=== PATIENT | female | born 1990 | race African-American/Black ===

== ENCOUNTER 2017-04-02 04:50 | Inpatient (IN) | payer OTHER ==
[2017-04-02] MEDS ORDERED: CITRIC ACID/SODIUM CITRATE 30 ML UNIT-DOSE CUP PO ONE (06:12)
[2017-04-02] MEDS ORDERED: ELECTROLYTE-148 SOLN 500 ML IV ONE (06:12)
[2017-04-02] MEDS ORDERED: ELECTROLYTE-148 SOLN 1,000 ML IV SCH (06:15)
--- NOTE | 2017-04-02 06:17 | HP ---
Past Medical History - Primary Care Physician PCP:: Anai Dailey - Admission Chief Complaint: 26 yrs , 36. 2 weeks, previous c/section in labor . onse LP at 3.30 am History of Present Illness: PNC at [facility] . Wt gain 17 lbs PNWork UP : A POS, HBSAg neg, RPR nr, HIV neg, Quantiferon neg, Quad screen neg. MFM sono done , last report on 01/29/17 28.5 /7 weeks, 66%tile growth(1409 gm) , TRISH 12.06, cx3.01 cm PT started [place] [facility] q1 week since 21 weeks( 3 rd week of Nov) until 2 weeks ago ( 34 weeks ) . pt has been seen twice before in L&D for threatened PTL, last seen on 03/27/17 . History Source: Patient, Medical Record Limitations to Obtaining History: No Limitations - Past Medical History PHOTO INTERN: No: CVA, Migraine, Seizure Cardiovascular: No: Aortic Insufficiency, Murmur Pulmonary: No: Asthma Gastrointestinal: No: Gastritis, Hemorrhoids Hepatobiliary: Yes: Choledocholithiasis (operated in 2010) Renal/: No: UTI ...: 2 ...Para: 1 ...Term: 0 ...: 1 (04/01/2010 primary c/section 27 weeks 2'8") ...Spon : 0 ...LMP: 09/01/16 ...EDC by Dates: 06/25/17 (mistaken dates ) ...EDC by Sono: 04/28/17 (36.2 weeks ) Heme/Onc: Yes: Anemia Infectious Disease: No: HIV, STD's Endocrine: No: Diabetes Mellitus, Hypothyroidism - Past Surgical History Past Surgical History: Yes: Cholecystectomy ([address] [facility] hosp), ( prom at [facility]) Hx Myomectomy: No Hx Transabdominal Cerclage: No - Smoking History Smoking history: Never smoked - Alcohol/Substance Use History of Substance Use: reports: None Home Medications - Allergies Allergies/Adverse Reactions: Allergies Allergy/AdvReac Type Severity Reaction Status Date / Time morphine Allergy Intermediate Verified 03/28/17 02:23 oxycodone Allergy Mild Verified 03/28/17 02:23 - Home Medications Home Medications: Ambulatory Orders NK [No Known Home Medication] 04/02/17 Physical Exam - Maternity Vital Signs: Selected Entries 04/02/17 04/02/17 06:00 06:20 Temperature 98 F 98 F Pulse Rate 94 H 100 H Blood Pressure 120/67 120/67 Constitutional: Yes: Well Nourished, Severe Distress Eyes: Yes: WNL HENT: Yes: WNL Neck: Yes: WNL Cardiovascular: Yes: WNL Lungs: Clear to auscultation Breast(s): Yes: WNL - Abdominal Exam/OB Fundal Height: 36 Number of Fetuses: Single Presentation: Vertex Contractions: Yes Regularity: Regular (4-5 min) Intensity: Mod/Strong Monitor Mode: External Heart Rate (range): 130-140 Heart Rate Location: [facility] Category: I Accelerations: Uniform Decelerations: None - Vaginal Exam/OB Vaginal Bleediing: No Speculum Exam: No Dilatation (cm): 1-2 Effacement (%): 70 Amniotic Membrane Status: Intact Presentation: Vertex/Position (exam at 6.00aM) Station: -1 - Physical Exam Musculoskeletal: Yes: WNL Extremities: Yes: WNL. No: Calf Tenderness Edema: No Integumentary: Yes: WNL, Incision (old pfannensteil scar) Deep Tendon Reflex Grade: Normal +2 ...Motor Strength: WNL Psychiatric: Yes: WNL, Alert, Oriented - Labs Lab Results: Laboratory Tests 04/02/17 04/02/17 06:15 06:15 WBC 6.9 Hgb 10.4 L Hct 31.5 L Plt Count 224 Neutrophils % 59.9 Lymphocytes % 31.1 Monocytes % 7.3 Sodium 137 Potassium 3.9 Chloride 105 Carbon Dioxide 21 BUN 5 L Creatinine 0.5 L Random Glucose 85 Calcium 8.6 Problem List - Problems (1) 36 to 37 weeks gestation of Code(s): [id number] - (2) Labor established Code(s): YTB8810 - (3) Previous section Code(s): Z98.891 - HISTORY OF UTERINE SCAR FROM PREVIOUS SURGERY Assessment/Plan 26 yrs , 36.2 weeks, s/p [place] [facility] until 2 weeks ago in PTlabor, refuses tocolysis 6.15 am late decel is noted down to 70 bpm for 3min , decel recovered after changing the position Plan delivery by Repeat c/section
[2017-04-02 06:38] VITALS: BMI 32.5
[2017-04-02 06:44] LABS: BASOPHIL 0.4 % (0-2.0); EOSINOPHIL 1.3 % (0-4.5); MCH 26.5 pg (25.7-33.7); MCHC 33.1 g/dl (32.0-36.0); MEAN CELL VOLUME 80.3 fl (80-96); MEAN PLT VOLUME 8.4 fl (7.5-11.1); NEUTROPHILS 59.9 % (42.8-82.8); PLATELET COUNT 224 K/MM3 (134-434); RDW 13.3 % (11.6-15.6); WHITE BLOOD COUNT 6.9 K/mm3 (4.0-10.0)
[2017-04-02 07:06] LABS: CALCIUM 8.6 mg/dL (8.5-10.1); COCKROFT - GAULT 203.83; CREATININE 0.5 mg/dL (0.55-1.02)
[2017-04-02 08:04] LABS: HIV 1 & 2 AB NEGATIVE; HIV 1 AGp24 NEGATIVE
[2017-04-02 08:56] LABS: INR 1.04 (0.82-1.09); PROTHROMBIN TIME (PATIENT) 11.4 SEC (9.98-11.88)
[2017-04-02 08:58] LABS: ACTIVATED PTT 24.4 SECONDS (26.9-34.4)
[2017-04-02] MEDS ORDERED: IBUPROFEN 800 MG/8 ML IJ IVPB PRN (09:54)
[2017-04-02] MEDS ORDERED: METHYLERGONOVINE MALEATE 0.2 MG/1 ML AMP IM PRN (09:54)
[2017-04-02] MEDS ORDERED: ACETAMINOPHEN 325 MG TABLET (FP) PO PRN (09:58)
[2017-04-02] MEDS ORDERED: IBUPROFEN 600 MG TABLET (FP) PO PRN (09:58)
[2017-04-02] MEDS ORDERED: ONDANSETRON 4 MG/2 ML VIAL IVPB PRN (09:58)
[2017-04-02] MEDS ORDERED: D5W-LR W/ 20 UNITS OXYTOCIN 1,000 ML IV SCH (10:00)
--- NOTE | 2017-04-02 10:02 | PN ---
Delivery - Delivery Section: Repeat, Low Flap Transverse (36.2 weeks, previous c/section in located within [facility]) Type of Anesthesia: Spinal Episiotomy/Laceration: None EBL (cc): 500 (floey out put 150 ml eileen color ) Delivery, Single - Stages of Labor Date 1st Stage Initiatied: 04/02/17 Time 1st Stage Initiated: 03:30 Date of Delivery: 04/02/17 Time of Delivery: 09:01 Time Placenta Delivered: 09:02 Placenta: Yes: Manual Removal, Uterine Exploration - Condition of Infant Self Pay Specialist/Towel Sorter Present: Yes Name: Mckinley Taylor Infant Gender: Female Weight: 5 lb 10 oz Position: Right, OT Total Hours ROM (Hrs/Mins): 0hrs 2min - 1 Minute Total Score: 9 5 Minutes Total Score: 9 - Feeding Plan Initial Plan: Elected not to breastfeed exclusively throughout hospitalization Remarks - Remarks Remarks: 26 yrs 36.2 weeks, previous c/section admitted in labor. h/o previous PTL, rx timmy until 34 weeks gestation Gbs unknown PNC at [facility] Intaop course uneventful
--- NOTE | 2017-04-02 10:11 | OP ---
Operative Note - Note: Operative Date: 04/02/17 Pre-Operative Diagnosis: 36.2 weeks, previous c/section in labor Operation: Repeat LFTC/Section Findings: 9.01 am , baby girl, 9/9, wt 5'10", ROT Dr Taylor logging crew foreman present in the room Both tubes & ovaries normal Surgeon: Anai Dailey Imaging Technician: Vanessa Simon Anesthesiologist/MACHINE TURNER: Rachel Cortes Anesthesia: Spinal Specimens Removed: placenta. cord blood Estimated Blood Loss (mls): 500 Drains, Volume Out (mls): 150 (quiros out put eileen color ) Fluid Volume Replaced (mls): 1,200 (iv ancef preop was given ) Operative Report Dictated: Yes
[2017-04-02] MEDS ORDERED: CEFAZOLIN (PRE-DOCKED) 50 ML IVPB ONE (17:10)
[2017-04-02] MEDS: CEFAZOLIN (PRE-DOCKED) 50 ML IVPB SCH (17:12)
[2017-04-03] MEDS: CEFAZOLIN (PRE-DOCKED) 50 ML IVPB SCH ×2 (01:10→09:37)
[2017-04-03] MEDS: ACETAMINOPHEN 325 MG TABLET (FP) PO PRN ×3 (06:49→21:10)
[2017-04-03] MEDS: IBUPROFEN 600 MG TABLET (FP) PO PRN ×3 (06:49→21:08)
[2017-04-03 07:32] LABS: BASOPHIL 0.4 % (0-2.0); EOSINOPHIL 2.2 % (0-4.5); MCH 26.5 pg (25.7-33.7); MCHC 32.8 g/dl (32.0-36.0); MEAN CELL VOLUME 80.9 fl (80-96); MEAN PLT VOLUME 8.4 fl (7.5-11.1); NEUTROPHILS 68.5 % (42.8-82.8); PLATELET COUNT 208 K/MM3 (134-434); RDW 13.4 % (11.6-15.6); WHITE BLOOD COUNT 9.6 K/mm3 (4.0-10.0)
--- NOTE | 2017-04-03 08:07 | PN ---
Post Progress Note - Subjective Subjective: c/o itching c/o pain. only after she voided first time voided after quiros is taken out Type of Delivery: Primary C/S Vital Signs: Vital Signs Temperature 98.2 F 04/03/17 06:00 Pulse Rate 88 04/03/17 06:00 Respiratory Rate 20 04/03/17 06:00 Blood Pressure 106/56 04/03/17 06:00 O2 Sat by Pulse Oximetry (%) 100 04/02/17 10:35 Breast Exam: Yes: Soft. No: Engorged Uterus: Yes: Fundus Firm, Fundus below umbilicus Incision: Yes: Dressing dry and intact. No: Redness, Oozing Abdomen/GI: Yes: Abdomen soft (bs cative ), Tolerating PO (clear liqiuds ). No : Abdominal Distention, Tender, Passing flatus Lochia: Yes: Rubra Lochia, amount: Moderate Extremities: Yes: Calves non-tender Perineum: Yes: Intact Activity: Ambulating - Labs Labs: CBC WBC 9.6 K/mm3 (4.0-10.0) D 04/03/17 06:00 RBC 4.09 M/mm3 (3.60-5.2) 04/03/17 06:00 Hgb 10.9 GM/dL (10.7-15.3) 04/03/17 06:00 Hct 33.1 % (32.4-45.2) 04/03/17 06:00 MCV 80.9 fl (80-96) 04/03/17 06:00 MCHC 32.8 g/dl (32.0-36.0) 04/03/17 06:00 RDW 13.4 % (11.6-15.6) 04/03/17 06:00 Plt Count 208 K/MM3 (134-434) 04/03/17 06:00 MPV 8.4 fl (7.5-11.1) 04/03/17 06:00 Neutrophils % 68.5 % (42.8-82.8) 04/03/17 06:00 Lymphocytes % 19.7 % (8-40) D 04/03/17 06:00 Monocytes % 9.2 % (3.8-10.2) 04/03/17 06:00 Eosinophils % 2.2 % (0-4.5) 04/03/17 06:00 Basophils % 0.4 % (0-2.0) 04/03/17 06:00 Other Findings, Remarks: JAYASHREE quiros out put adequate Problem List - Problems (1) 36 to 37 weeks gestation of Code(s): [id number] - (2) Labor established Code(s): [id number] - (3) Previous section Code(s): Z98.891 - HISTORY OF UTERINE SCAR FROM PREVIOUS SURGERY (4) delivery delivered Code(s): O82 - ENCOUNTER FOR DELIVERY WITHOUT INDICATION Assessment/Plan stable. plan ct po care
[2017-04-03] MEDS: PRENATAL VITAMINS W/ FOLIC ACID TABLET (FP) PO SCH (09:37)
[2017-04-03] MEDS: ENOXAPARIN NA (PORCINE) 40 MG/0.4 ML DISP.SYRIN SQ SCH (09:38)
[2017-04-03] MEDS ORDERED: BISACODYL 10 MG SUPP.RECT RC PRN (09:54)
--- NOTE | 2017-04-03 12:07 | OP ---
DATE OF OPERATION: 04/02/2017 PREOPERATIVE DIAGNOSES: At 36.2 weeks, previous section, in labor. OPERATION DONE: Repeat low-flap transverse section. SURGEON: Anai Dailey MD PRODUCTION MATERIAL COORDINATOR SURGEON: Vanessa Simon MD ANESTHESIOLOGIST: Rachel Cortes MD ANESTHESIA: Spinal. FINDINGS: This is a 26-year-old 2, para 0-1-0-1 with a history of labor, previous in the past at 27 weeks' gestation. Now, she is 36.2 weeks. She was in labor, having contractions every 4 or 5 minutes, 1 cm, 70%, dilated at -1 station, so the patient was taken for a . PROCEDURE: Patient was taken to the operating room table. Abdomen was shaved, prepped. Mora catheter was placed and spinal anesthesia was given. She was placed in supine position. Abdomen was painted and draped in the usual manner, then a Pfannenstiel incision was made through previous scar. The skin, subcutaneous tissue, anterior rectus sheath were incised transversely. Bleeding points were clamped and cauterized. Rectus muscle was from the rectus sheath. Parietal peritoneum was opened vertically. Lower flap of the peritoneum was identified and it was incised transversely. Lower uterine segment was incised transversely. Amniotic fluid was clear, then the baby was delivered from ROT position , Vx, was 9, 9 and baby's weight was 5 pounds 10 ounces. Cord was clamped, cut, cord blood was collected and the placenta was removed from completely with the membranes. Personal Lines Appraiser, Dr. Taylor, was in the room. First, the uterine incision closure was done. First layer of the uterus incision was closed with Boisyn O suture; continuous locking sutures were taken. The 2nd layer was a Biosyn 0 suture; continuous intermittently locking vertical mattress sutures were taken. Then, bladder peritoneum also was closed with biosyn oO continuous suture. Both tubes and ovaries were normal. There were multiple adhesions on the adnexa on both sides and omental adhesions anteriorly covering the superior peritoneum. There was adhesion of omentum with a thick band to the uterus on the right side, which was clamped, cut and the stump on the uterus side was transfixed with Biosyn O suture. Hemostasis verified and then irrigation was done. Then, the adhesions superiorly to the peritoneum were covering completely, so lysis was not done there, but the right and left side of the peritoneum were made free of the omental adhesions, then the parietal peritoneum was closed with a Vicryl suture. Muscles were approximated together with a Vicryl 0 suture; interrupted sutures were taken. Then, the anterior rectus sheath was mobilized from the skin scar and it was freed. The anterior rectus sheath was closed with Vicryl 0 continuous sutures and hemostasis was checked in subcutaneous tissue; interrupted sutures were taken with vicryl O suture in subcutaneous tissue, then skin was approximated with brenda. Pressure dressing was given. Blood clots were removed from the vagina and patient tolerated procedure well. She was transferred to the recovery room in stable condition. ESTIMATED BLOOD LOSS: Was 500 mL. URINE OUTPUT INTRAOPERATIVELY: Was 150 mL. She received IV Ancef 1 g prior to the incision. Albert [id number] MTDD
--- NOTE | 2017-04-03 14:04 | PN ---
Progress Note (short form) - Note Progress Note: Anesthesia postop note 26 y/o F s/p spinal anesthesia for c/s, duramorph for postop pain management POD#1, vss, aaoX3, no complaints, pain well controlled, ambulating No anesthesia complications.
[2017-04-03] MEDS: SIMETHICONE 80 MG TAB.CHEW (FP) PO PRN ×2 (17:51→21:11)
[2017-04-03] MEDS: SENNOSIDES/DOCUSATE COMBO (SENNA PLUS) TABLET (UD) PO PRN (21:10)
[2017-04-03] MEDS: FERROUS SO4 325 MG TABLET (FP) PO SCH (21:23)
[2017-04-04] MEDS: PRENATAL VITAMINS W/ FOLIC ACID TABLET (FP) PO SCH (10:12)
[2017-04-04] MEDS: FERROUS SO4 325 MG TABLET (FP) PO SCH ×2 (10:12→21:24)
[2017-04-04] MEDS: ENOXAPARIN NA (PORCINE) 40 MG/0.4 ML DISP.SYRIN SQ SCH (10:13)
[2017-04-04] MEDS: ACETAMINOPHEN 325 MG TABLET (FP) PO PRN (13:00)
[2017-04-04] MEDS: SIMETHICONE 80 MG TAB.CHEW (FP) PO PRN (13:00)
[2017-04-04] MEDS: IBUPROFEN 600 MG TABLET (FP) PO PRN (13:01)
--- NOTE | 2017-04-04 18:05 | PN ---
Post Progress Note - Subjective Subjective: no c/o pain , scale 4-5/10 voiding without difficulty Post Day: 2 Type of Delivery: Repeat C/S Vital Signs: Vital Signs Temperature 97.7 F 04/04/17 09:42 Pulse Rate 76 04/04/17 09:42 Respiratory Rate 18 04/04/17 09:42 Blood Pressure 128/72 04/04/17 09:42 O2 Sat by Pulse Oximetry (%) 100 04/02/17 10:35 Breast Exam: Yes: Soft, Other (BF ). No: Engorged Uterus: Yes: Fundus Firm, Fundus below umbilicus, Non-tender Incision: Yes: Ba intact. No: Redness, Oozing Abdomen/GI: Yes: Abdomen soft, Tender, Passing flatus (bm done ), Tolerating PO (diet). No: Abdominal Distention Lochia: Yes: Rubra Lochia, amount: Moderate Extremities: Yes: Calves non-tender Perineum: Yes: Intact Activity: Ambulating - Labs Labs: CBC WBC 9.6 K/mm3 (4.0-10.0) D 04/03/17 06:00 RBC 4.09 M/mm3 (3.60-5.2) 04/03/17 06:00 Hgb 10.9 GM/dL (10.7-15.3) 04/03/17 06:00 Hct 33.1 % (32.4-45.2) 04/03/17 06:00 MCV 80.9 fl (80-96) 04/03/17 06:00 MCHC 32.8 g/dl (32.0-36.0) 04/03/17 06:00 RDW 13.4 % (11.6-15.6) 04/03/17 06:00 Plt Count 208 K/MM3 (134-434) 04/03/17 06:00 MPV 8.4 fl (7.5-11.1) 04/03/17 06:00 Neutrophils % 68.5 % (42.8-82.8) 04/03/17 06:00 Lymphocytes % 19.7 % (8-40) D 04/03/17 06:00 Monocytes % 9.2 % (3.8-10.2) 04/03/17 06:00 Eosinophils % 2.2 % (0-4.5) 04/03/17 06:00 Basophils % 0.4 % (0-2.0) 04/03/17 06:00 Problem List - Problems (1) 36 to 37 weeks gestation of Code(s): [id number] - (2) Labor established Code(s): [id number] - (3) Previous section Code(s): Z98.891 - HISTORY OF UTERINE SCAR FROM PREVIOUS SURGERY (4) delivery delivered Code(s): O82 - ENCOUNTER FOR DELIVERY WITHOUT INDICATION Assessment/Plan stable plan ct po care
[2017-04-04] MEDS: SENNOSIDES/DOCUSATE COMBO (SENNA PLUS) TABLET (UD) PO PRN (21:24)
[2017-04-05] MEDS: IBUPROFEN 600 MG TABLET (FP) PO PRN (02:17)
[2017-04-05] MEDS: ACETAMINOPHEN 325 MG TABLET (FP) PO PRN (02:20)
[2017-04-05] MEDS: SIMETHICONE 80 MG TAB.CHEW (FP) PO PRN (02:20)
[2017-04-05 06:49] LABS: BASOPHIL 0.4 % (0-2.0); EOSINOPHIL 4.9 % (0-4.5); MCH 26.5 pg (25.7-33.7); MCHC 32.7 g/dl (32.0-36.0); MEAN CELL VOLUME 81.1 fl (80-96); MEAN PLT VOLUME 8.5 fl (7.5-11.1); NEUTROPHILS 56.3 % (42.8-82.8); PLATELET COUNT 215 K/MM3 (134-434); RDW 13.7 % (11.6-15.6)
[2017-04-05] MEDS: ENOXAPARIN NA (PORCINE) 40 MG/0.4 ML DISP.SYRIN SQ SCH (09:06)
[2017-04-05] MEDS: FERROUS SO4 325 MG TABLET (FP) PO SCH ×2 (09:06→21:53)
[2017-04-05] MEDS: PRENATAL VITAMINS W/ FOLIC ACID TABLET (FP) PO SCH (09:06)
--- NOTE | 2017-04-05 09:39 | PN ---
Post Progress Note - Subjective Subjective: no complains pain scale 0. Post Day: 3 Type of Delivery: Repeat C/S Vital Signs: Vital Signs Temperature 98.4 F 04/04/17 22:00 Pulse Rate 85 04/04/17 22:00 Respiratory Rate 18 04/04/17 22:00 Blood Pressure 116/68 04/04/17 22:00 O2 Sat by Pulse Oximetry (%) 100 04/02/17 10:35 Breast Exam: Yes: Soft. No: Engorged Uterus: Yes: Fundus Firm, Fundus below umbilicus, Non-tender Incision: Yes: [place] intact. No: Redness, Oozing Abdomen/GI: Yes: Abdomen soft, Passing flatus (bm done ), Tolerating PO (diet ) . No: Abdominal Distention, Tender Lochia: Yes: Rubra Lochia, amount: Moderate Extremities: Yes: Calves non-tender Perineum: Yes: Intact Activity: Ambulating - Labs Labs: CBC WBC 7.0 K/mm3 (4.0-10.0) 04/05/17 05:42 RBC 3.59 M/mm3 (3.60-5.2) L 04/05/17 05:42 Hgb 9.5 GM/dL (10.7-15.3) L D 04/05/17 05:42 Hct 29.1 % (32.4-45.2) L 04/05/17 05:42 MCV 81.1 fl (80-96) 04/05/17 05:42 MCHC 32.7 g/dl (32.0-36.0) 04/05/17 05:42 RDW 13.7 % (11.6-15.6) 04/05/17 05:42 Plt Count 215 K/MM3 (134-434) 04/05/17 05:42 MPV 8.5 fl (7.5-11.1) 04/05/17 05:42 Neutrophils % 56.3 % (42.8-82.8) 04/05/17 05:42 Lymphocytes % 31.2 % (8-40) D 04/05/17 05:42 Monocytes % 7.2 % (3.8-10.2) 04/05/17 05:42 Eosinophils % 4.9 % (0-4.5) H D 04/05/17 05:42 Basophils % 0.4 % (0-2.0) 04/05/17 05:42 Problem List - Problems (1) 36 to 37 weeks gestation of Code(s): [id number] - (2) Labor established Code(s): [id number] - (3) Previous section Code(s): Z98.891 - HISTORY OF UTERINE SCAR FROM PREVIOUS SURGERY (4) delivery delivered Code(s): O82 - ENCOUNTER FOR DELIVERY WITHOUT INDICATION Assessment/Plan stable plan discharge tomorrow. remove staoles tomorrow.
--- NOTE | 2017-04-05 15:14 | PATH ---
Surgical Pathology Report Patient Name: JUS ETIENNE Med. Rec. #: [id number] /Age/Gender: 1990 (Age: 26) / F Account: [id number] Location: [facility] OBS/HEALTHCARE ADVISORY SERVICES MANAGER Taken: 04/02/2017 Received: 04/03/2017 Reported: 04/05/2017 Physicians: Anai Dailey M.D. Specimen(s) Received PLACENTA Clinical History , c/section x1; gallbladder removed 01/28 Repeat c/section Final Diagnosis PLACENTA, DELIVERY: FOCALLY DISRUPTED, SMALL (<400 GM), THIRD TRIMESTER PLACENTA WITH MODERATE INCREASE IN PREVILLOUS, PERIVILLOUS, AND PRECHORIONIC FIBRIN DEPOSITION, THREE VESSEL UMBILICAL CORD, AND UNREMARKABLE PLACENTAL MEMBRANES. Electronically Signed Jaylon Lance M.D. Gross Description The specimen is received fresh, labeled "placenta" and is a 375 gram, 18.0 x 15.0 x 2.2 cm placenta with attached membranes and umbilical cord. The attached membranes are raymond, translucent with focal opacities and insert marginally. The umbilical cord measures 33 cm in length and averages 1.1 cm in diameter. The cord inserts eccentrically, 5 cm to the nearest margin. No true knots or strictures are identified. Cut surface of the umbilical cord reveals 3 vessels. The surface is bauer-blue with fibrin deposition and appropriate caliber vessels. The maternal surface is red-brown with focal defects. Sectioning reveals red-brown, spongy parenchyma. No focal lesions are identified. Account Development Specialist sections are submitted in three cassettes as follows: 1- membrane rolls and umbilical cord; 2-3- full thickness sections of placenta. /04/04/2017 [facility]04/04/2017
[2017-04-06] MEDS: SIMETHICONE 80 MG TAB.CHEW (FP) PO PRN (00:36)
[2017-04-06] MEDS: ACETAMINOPHEN 325 MG TABLET (FP) PO PRN (00:37)
[2017-04-06] MEDS: IBUPROFEN 600 MG TABLET (FP) PO PRN (00:38)
--- NOTE | 2017-04-06 06:37 | PN ---
Post Progress Note Post Day: 4 Type of Delivery: Repeat C/S Vital Signs: Vital Signs Temperature 98.0 F 04/05/17 21:54 Pulse Rate 110 H 04/05/17 21:54 Respiratory Rate 20 04/05/17 21:54 Blood Pressure 126/70 04/05/17 21:54 O2 Sat by Pulse Oximetry (%) 100 04/02/17 10:35 Uterus: Yes: Fundus Firm Incision: Yes: [place] intact Abdomen/GI: Yes: Abdomen soft Lochia: Yes: Rubra Lochia, amount: Small Extremities: Yes: Calves non-tender Perineum: Yes: Intact Activity: Ambulating - Labs Labs: CBC WBC 7.0 K/mm3 (4.0-10.0) 04/05/17 05:42 RBC 3.59 M/mm3 (3.60-5.2) L 04/05/17 05:42 Hgb 9.5 GM/dL (10.7-15.3) L D 04/05/17 05:42 Hct 29.1 % (32.4-45.2) L 04/05/17 05:42 MCV 81.1 fl (80-96) 04/05/17 05:42 MCHC 32.7 g/dl (32.0-36.0) 04/05/17 05:42 RDW 13.7 % (11.6-15.6) 04/05/17 05:42 Plt Count 215 K/MM3 (134-434) 04/05/17 05:42 MPV 8.5 fl (7.5-11.1) 04/05/17 05:42 Neutrophils % 56.3 % (42.8-82.8) 04/05/17 05:42 Lymphocytes % 31.2 % (8-40) D 04/05/17 05:42 Monocytes % 7.2 % (3.8-10.2) 04/05/17 05:42 Eosinophils % 4.9 % (0-4.5) H D 04/05/17 05:42 Basophils % 0.4 % (0-2.0) 04/05/17 05:42 Assessment/Plan as above dc home see on monday
[2017-04-06] MEDS: ENOXAPARIN NA (PORCINE) 40 MG/0.4 ML DISP.SYRIN SQ SCH (09:55)
[2017-04-06] MEDS: PRENATAL VITAMINS W/ FOLIC ACID TABLET (FP) PO SCH (09:55)
[2017-04-06] MEDS: FERROUS SO4 325 MG TABLET (FP) PO SCH (09:55)
[2017-04-06 10:29] VITALS: BP 113/71; PULSE 65; TEMP 98.3
--- NOTE | 2017-04-18 18:12 | DS ---
Physical Exam-LAW PROFESSOR Vital Signs: Vital Signs Temperature 98.3 F 04/06/17 10:00 Pulse Rate 65 04/06/17 10:00 Respiratory Rate 20 04/06/17 10:00 Blood Pressure 113/71 04/06/17 10:00 O2 Sat by Pulse Oximetry (%) 100 04/02/17 10:35 Constitutional: Yes: Well Nourished Eyes: Yes: WNL HENT: Yes: WNL, Normocephalic Neck: Yes: WNL Cardiovascular: Yes: WNL Respiratory: Yes: WNL Gastrointestinal: Yes: WNL, Normal Bowel Sounds, Soft. No: Distention ...Rectal Exam: Yes: WNL Renal/: Yes: WNL External Genitalia: Yes: Normal ....Post : Yes: Uterus firm, Moderate lochia rubra Breast(s): Yes: WNL Extremities: Yes: WNL. No: Calf Tenderness Edema: Yes Edema: LLE: 1+, RLE: 1+ Integumentary: Yes: Incision Wound/Incision: Yes: Clean/Dry, Well Approximated, Steri Strips, Open to air, Sanderson Removed. No: Draining, Reddened, Bleeding Neurological: Yes: WNL, Alert, Oriented ...Motor Strength: WNL Psychiatric: Yes: WNL, Alert, Oriented Labs: CBC, BMP 04/05/17 05:42 04/02/17 06:15 Delivery - Delivery Section: Repeat, Low Flap Transverse (36.2 weeks, previous c/section in [facility]) Type of Anesthesia: Spinal Episiotomy/Laceration: None EBL (cc): 500 (floey out put 150 ml eileen color ) Delivery, Single - Stages of Labor Date 1st Stage Initiatied: 04/02/17 Time 1st Stage Initiated: 03:30 Date of Delivery: 04/02/17 Time of Delivery: 09:01 Time Placenta Delivered: 09:02 Placenta: Yes: Manual Removal, Uterine Exploration - Condition of Welding Rod Coater/Yoker Present: Yes Name: Mckinley Taylor Infant Gender: Female Weight: 5 lb 10 oz Position: Right, OT Total Hours ROM (Hrs/Mins): 0hrs 2min - 1 Minute Total Score: 9 5 Minutes Total Score: 9 - Feeding Plan Initial Plan: Elected not to breastfeed exclusively throughout hospitalization Remarks - Remarks Remarks: 26 yrs 36.2 weeks, previous c/section admitted in labor. h/o previous PTL, rx timmy until 34 weeks gestation Gbs unknown PNC at [facility] Intaop course uneventful . post op course was uneventful discharge on 04/06/17 Discharge Summary Reason For Visit: ADMIT Condition: Stable - Instructions Diet, Activity, Other Instructions: Post Instructions DIET: Continue good diet high in protein, calcium, and iron rich foods. Drink at least eight (8) glasses of water daily in addition to other fluids. ___ Regular diet MEDICATIONS: Continue vitamins and iron as previously directed. Motrin and Tylenol may be taken for minor discomfort. ACTIVITY: Mild to moderate exercise may be started in two (2) weeks. Take frequent rest periods. Resume normal activity after six (6) week check up. WOUND CARE OF OPERATIVE SITE: Continue use of perineal bottle until vaginal discharge stops. Keep area clean. Shower daily. Keep abdominal wound dry. Report any drainage or redness to physician. Tub baths, tampons and douches are not permitted for [address] Breast feeding and or Bottle feeding BREAST CARE: (For those that are not ): If engorgement occurs: Wear tight fitting bra. Take Tylenol or Motrin for pain. Apply cold packs (ice in bags to each breast ) FAMILY PLANNING: There are many control alternatives to pursue and they should be discussed at your first office visit. You may resume sexual activity after your six (6) week check up. (Remember, is not a contraceptive) NEXT PHYSICIAN APPOINTMENT: Be certain to call for a one (1) week appointment, unless otherwise directed. for wound check Call Clinic or got to Emergency Dept if you have any of the following: Heavy vaginal bleeding Painful urination Leg pain Unusual odor noted to vaginal bleeding High fever Red streaking noted on breast Referrals: Anai Dailey MD [Staff Physician] - Disposition: HOME - Home Medications Comprehensive Discharge Medication List: Ambulatory Orders Acetaminophen [Tylenol .Regular Strength -] 650 mg PO Q4H PRN #0 tablet Ferrous Sulfate [Feosol] 325 mg PO BID #60 tablet 04/06/17 Ibuprofen [Motrin -] 600 mg PO Q4H PRN #30 tablet 04/06/17 Vitamins (Sjr) - 1 tab PO DAILY #30 tablet 04/06/17
== END 2017-04-06 11:00 | disposition home or self-care (01) | DRG 540 ==
LOC: JDEL 04:50 → JLDR 06:00 → J3W 11:22
PROVIDERS: ADMIT Obstetrics & Gynecology; ATTEND Obstetrics & Gynecology
PROC: 10D00Z1 Extraction of Products of Conception, Low, Open Approach (ICD-10-PCS; principal; 2017-04-02)
DX: O34.211 Maternal care for low transverse scar from previous cesarean delivery (principal); N85.8 Other specified noninflammatory disorders of uterus; Z3A.36 36 weeks gestation of pregnancy; Z37.0 Single live birth
CPT/HCPCS: 36415; 80048; 85025; 85610; 85730; 86593; 86850; 86900; 86901; 87389; 88307-TC

== ENCOUNTER 2017-04-18 20:42 | Emergency (ER) | payer OTHER ==
[2017-04-18 20:47] VITALS: BP 119/75; PULSE 63; TEMP 98.5; BMI 29.5
[2017-04-18] MEDS ORDERED: DOXYCYCLINE HYCLATE 100 MG CAPSULE PO ONE ×2 (21:50→21:52)
== END 2017-04-18 22:00 | disposition home or self-care (01) ==
LOC: JER 20:42
PROC: 3E0333Z Introduction of Anti-inflammatory into Peripheral Vein, Percutaneous Approach (ICD-10-PCS; principal; 2017-04-18)
PROC: 3E033NZ Introduction of Analgesics, Hypnotics, Sedatives into Peripheral Vein, Percutaneous Approach (ICD-10-PCS; 2017-04-18)
PROC: 3E033GC Introduction of Other Therapeutic Substance into Peripheral Vein, Percutaneous Approach (ICD-10-PCS; 2017-04-18)
PROC: 3E0337Z Introduction of Electrolytic and Water Balance Substance into Peripheral Vein, Percutaneous Approach (ICD-10-PCS; 2017-04-18)
DX: N39.0 Urinary tract infection, site not specified (principal); E11.9 Type 2 diabetes mellitus without complications; I10 Essential (primary) hypertension; Z87.891 Personal history of nicotine dependence
CPT/HCPCS: 96361; 96374; 96375; 96376; 99281-25

== ENCOUNTER 2017-11-14 20:13 | Emergency (ER) | payer OTHER ==
[2017-11-14 20:23] VITALS: BP 118/61; PULSE 64; TEMP 98.6; BMI 32.4
--- NOTE | 2017-11-14 20:54 | PDOC ---
Rapid Medical Evaluation Chief Complaint: Pain Time Seen by Provider: 11/14/17 20:50 Medical Evaluation: Allergies Allergy/AdvReac Type Severity Reaction Status Date / Time morphine Allergy Intermediate Verified 11/14/17 20:20 oxycodone Allergy Mild Verified 11/14/17 20:20 Vital Signs Temp Pulse Resp BP Pulse Ox 98.6 F 64 18 118/61 11/14/17 20:21 11/14/17 20:21 11/14/17 20:21 11/14/17 20:21 11/14/17 20:50 c/o right pelvic pain started this evening. + home test. no vaginal bleeding PE: Patient alert ox3. Plan: cbc, beta hcg, type and screen, TVUS 11/14/17 20:53 Discharge Disposition - Discharge Dispostion Last Admission D/C Date: 04/06/17 - Referrals Referrals: Jessika Aguilera [Primary Care Provider] - - Patient Instructions - Post Discharge Activity
[2017-11-14 21:22] LABS: URINE APPEARANCE SLCLOUDY; URINE BILIRUBIN NEGATIVE (NEGATIVE); URINE BLOOD NEGATIVE (NEGATIVE); URINE COLOR YELLOW; URINE GLUCOSE (UA) NEGATIVE (NEGATIVE); URINE KETONE NEGATIVE (NEGATIVE); URINE LEUK ESTERASE NEGATIVE (NEGATIVE); URINE NITRITE NEGATIVE (NEGATIVE); URINE PROTEIN NEGATIVE (NEGATIVE); URINE UROBILINOGEN NEGATIVE mg/dL (0.2-1.0)
[2017-11-14 21:26] LABS: BASO # 0.1 # (0.1-1); BASO % 1.3 % (0-2.0); EOS # 0.1 # (0-4.5); EOS % 1.5 % (0-4.5); MCH 27.1 pg (25.7-33.7); MCHC 32.3 g/dl (32.0-36.0); MEAN CELL VOLUME 83.9 fl (80-96); MEAN PLT VOLUME 8.8 fl (7.5-11.1); MONO # 0.4 # (3.8-10.2); NEUT # 2.4 # (42.8-82.8); NEUT % 40.7 % (42.8-82.8); PLATELET COUNT 278 K/MM3 (134-434); WHITE BLOOD COUNT 5.9 K/mm3 (4.0-10.0)
[2017-11-14 21:41] LABS: INR 1.08 (0.82-1.09); PROTHROMBIN TIME (PATIENT) 12.2 SEC (9.98-11.88)
--- NOTE | 2017-11-14 22:09 | PDOC ---
History of Present Illness - General History Source: Patient Exam Limitations: No Limitations - History of Present Illness Initial Comments: 11/14/17 22:26 The patient is a 27 year old female who is 7 weeks with no other significant PMH who presents to the emergency department with abdominal/adnexal pain beginning approximately shortly before presentation. The patient describes the abdominal pain as localized in the right lower quadrant and adnexal region with associated nausea. The patient notes she has been high risk for early miscarriage in her previous pregnancies. The patient denies chest pain, shortness of breath, headache and dizziness. Denies fever, chills, vomit, diarrhea and constipation. Denies dysuria, frequency, urgency and hematuria. Denies vaginal bleeding or discharge. Allergies: Morphine, Oxycodone Past surgical history: None reported. Social history: No reported cigarette, alcohol, or drug use. PCP: Dr. Jessika Aguilera <Cristi Dean - Last Filed: 11/14/17 22:26> - General History Source: Patient <Ramírez Dillon - Last Filed: 11/15/17 01:05> - General Chief Complaint: Pain Stated Complaint: STOMACH PAIN Time Seen by Provider: 11/14/17 20:50 Past History <Cristi Dean - Last Filed: 11/14/17 22:26> - Past Medical History Asthma: No Cancer: No Cardiac Disorders: No COPD: No Diabetes: No HTN: No Seizures: No Thyroid Disease: No - Surgical History Cholecystectomy: Yes - Suicide/Smoking/Psychosocial Hx Smoking History: Never smoked Hx Alcohol Use: No Drug/Substance Use Hx: No Hx Substance Use Treatment: No <Ramírez Dillon - Last Filed: 11/15/17 01:05> - Past Medical History Allergies/Adverse Reactions: Allergies Allergy/AdvReac Type Severity Reaction Status Date / Time morphine Allergy Intermediate Verified 11/14/17 20:20 oxycodone Allergy Mild Verified 11/14/17 20:20 Home Medications: Ambulatory Orders Doxycycline Monohydrate [Mondoxyne Nl] 100 mg PO BID #14 capsule 04/18/17 Metoclopramide HCl [Reglan -] 10 mg PO QID #120 tablet 11/15/17 Review of Systems - Review of Systems Able to Perform ROS?: Yes Comments:: 12/26/17 22:26 CONSTITUTIONAL: Absent: fever, chills, diaphoresis, generalized weakness, malaise, loss of appetite HEENT: Absent: rhinorrhea, nasal congestion, throat pain, throat swelling, difficulty swallowing, mouth swelling, ear pain, eye pain, visual Changes CARDIOVASCULAR: Absent: chest pain, syncope, palpitations, irregular heart rate, lightheadedness , peripheral edema RESPIRATORY: Absent: cough, shortness of breath, dyspnea with exertion, orthopnea, wheezing, stridor, hemoptysis GASTROINTESTINAL: (+) RLQ abdominal/adnexal pain. (+) Nausea. Absent: abdominal distension, vomiting, diarrhea, constipation, melena, hematochezia GENITOURINARY: Absent: dysuria, frequency, urgency, hesitancy, hematuria, flank pain, genital pain MUSCULOSKELETAL: Absent: myalgia, arthralgia, joint swelling SKIN: Absent: rash, itching, pallor HEMATOLOGIC/IMMUNOLOGIC: Absent: easy bleeding, easy bruising, lymphadenopathy, frequent infections ENDOCRINE: Absent: unexplained weight gain, unexplained weight loss, heat intolerance, cold intolerance NEUROLOGIC: Absent: headache, focal weakness or paresthesias, dizziness, unsteady gait, seizure, mental status changes, bladder or bowel incontinence PSYCHIATRIC: Absent: anxiety, depression, suicidal or homicidal ideation, hallucinations. <Cristi Dean - Last Filed: 11/14/17 22:26> *Physical Exam - Vital Signs Last Vital Signs Temp Pulse Resp BP Pulse Ox 98.6 F 64 18 118/61 11/14/17 20:21 11/14/17 20:21 11/14/17 20:21 11/14/17 20:21 - Physical Exam Comments: 11/14/17 22:26 GENERAL: Well developed, well nourished. Awake and alert. No acute distress. HEENT: Normocephalic, atraumatic. PERRLA, EOMI. No conjunctival pallor. Sclera are non- icteric. Moist mucous membranes. Oropharynx is clear. NECK: Supple. Full ROM. No JVD. Carotid pulses 2+ and symmetric, without bruits. No thyromegaly. No lymphadenopathy. CARDIOVASCULAR: Regular rate and rhythm. No murmurs, rubs, or gallops. Distal pulses are 2+ and symmetric. PULMONARY: No evidence of respiratory distress. Lungs clear to auscultation bilaterally. No wheezing, rales or rhonchi. ABDOMINAL: Soft. Non-tender. Non-distended. No rebound or guarding. No organomegaly. Normoactive bowel sounds. PELVIC: Deferred to ultrasound. MUSCULOSKELETAL Normal range of motion at all joints. No bony deformities or tenderness. No CVA tenderness. EXTREMITIES: No cyanosis. No clubbing. No edema. No calf tenderness. SKIN: Warm and dry. Normal capillary refill. No rashes. No jaundice. NEUROLOGICAL: Alert, awake, appropriate. Cranial nerves 2-12 intact. No deficits to light touch and temperature in face, upper extremities and lower extremities. No motor deficits in the in face, upper extremities and lower extremities. Normoreflexic in the upper and lower extremities. Normal speech. Toes are down- going bilaterally. Gait is normal without ataxia. PSYCHIATRIC: Cooperative. Good eye contact. Appropriate mood and affect. <Cristi Dean - Last Filed: 11/14/17 22:26> - Vital Signs Last Vital Signs Temp Pulse Resp BP Pulse Ox 98.6 F 64 18 118/61 11/14/17 20:21 11/14/17 20:21 11/14/17 20:21 11/14/17 20:21 <Ramírez Dillon - Last Filed: 11/15/17 01:05> ED Treatment Course - LABORATORY CBC & Chemistry Diagram: 11/14/17 21:20 - ADDITIONAL ORDERS Additional order review: Laboratory Results 11/14/17 11/14/17 21:20 21:05 PT with INR 12.20 H INR 1.08 Urine Color Yellow Urine Appearance Slcloudy Urine pH 5.0 Ur Specific [place] 1.020 Urine Protein Negative Urine Glucose (UA) Negative Urine Ketones Negative Urine Blood Negative Urine Nitrite Negative Urine Bilirubin Negative Urine Urobilinogen Negative Urine HCG, Qual Positive 11/14/17 21:20 RBC 4.56 D MCV 83.9 MCHC 32.3 RDW 14.0 MPV 8.8 Neutrophils % 40.7 L D Lymphocytes % 50.1 H D Monocytes % 6.4 Eosinophils % 1.5 Basophils % 1.3 D <Cristi Dean - Last Filed: 11/14/17 22:26> - LABORATORY CBC & Chemistry Diagram: 11/14/17 21:20 - ADDITIONAL ORDERS Additional order review: Laboratory Results 11/14/17 11/14/17 21:20 21:05 PT with INR 12.20 H INR 1.08 Urine Color Yellow Urine Appearance Slcloudy Urine pH 5.0 Ur Specific [place] 1.020 Urine Protein Negative Urine Glucose (UA) Negative Urine Ketones Negative Urine Blood Negative Urine Nitrite Negative Urine Bilirubin Negative Urine Urobilinogen Negative Urine HCG, Qual Positive 11/14/17 21:20 RBC 4.56 D MCV 83.9 MCHC 32.3 RDW 14.0 MPV 8.8 Neutrophils % 40.7 L D Lymphocytes % 50.1 H D Monocytes % 6.4 Eosinophils % 1.5 Basophils % 1.3 D <Ramírez Dillon - Last Filed: 11/15/17 01:05> Medical Decision Making - Medical Decision Making 11/15/17 00:59 Dr. Dillon: The scribe's documentation has been prepared under my direction and personally reviewed by me in its entirery. I confirm that the note above accurately reflects all work, treatment, procedures, and medical decision making performed by me. <Ramírez Dillon - Last Filed: 11/15/17 01:05> *DC/Admit/Observation/Transfer - Attestations Scribe Attestion: 11/14/17 22:26 Documentation prepared by Cristi Dean, acting as medical transcriber for Ramírez Dillon DO. <Cristi Dean - Last Filed: 11/14/17 22:26> - Discharge Dispostion Admit: No <Ramírez Dillon - Last Filed: 11/15/17 01:05> Diagnosis at time of Disposition: Qualifiers: Weeks of gestation: less than 8 weeks Qualified Code(s): Z3A.01 - Less than 8 weeks gestation of - Discharge Dispostion Disposition: HOME Condition at time of disposition: Stable - Prescriptions Prescriptions: Metoclopramide HCl [Reglan -] 10 mg PO QID #120 tablet - Referrals Referrals: Jessika Aguilera [Primary Care Provider] - Artem Granado MD [Staff Physician] - - Patient Instructions Printed Discharge Instructions: Medications and - Post Discharge Activity
[2017-11-14 22:33] LABS: URINE LEUK ESTERASE Negative (NEGATIVE)
== END 2017-11-15 01:28 | disposition home or self-care (01) ==
LOC: JER 20:13
DX: O26.891 Other specified pregnancy related conditions, first trimester (principal); R10.31 Right lower quadrant pain; Z3A.01 Less than 8 weeks gestation of pregnancy
CPT/HCPCS: 36415; 76817-TC; 81003; 84702; 84703; 85025; 85610; 86850; 86900; 86901; 99282-25

== ENCOUNTER 2017-12-21 13:11 | Emergency (ER) | payer OTHER ==
[2017-12-21 13:29] VITALS: BP 112/60; PULSE 78; TEMP 98.3; BMI 31.2
--- NOTE | 2017-12-21 14:54 | PDOC ---
History of Present Illness - General Chief Complaint: Vaginal Bleeding Stated Complaint: VAGINAL BLEEDING (13 WKS ) Time Seen by Provider: 12/21/17 14:42 - History of Present Illness Initial Comments: 12/21/17 14:49 27 yo at 13 wga confirmed by U/S who presents with vaginal bleeding. Reports that she was squatting today and saw bright red blood n underwear with clotting. Yesterday saw pink discharge while lifting child into car seat yesterday evening. Denies N/V, F/C, urinary complaints, diarrhea, constipation, abdominal pain, vaginal discharge, burning, lightheadedness, LOC. No HONEY PRODUCER. Denies tobacco or alcohol use. Past History - Past Medical History Allergies/Adverse Reactions: Allergies Allergy/AdvReac Type Severity Reaction Status Date / Time morphine Allergy Intermediate Verified 12/21/17 13:27 oxycodone Allergy Mild Verified 12/21/17 13:27 Home Medications: Ambulatory Orders Doxycycline Monohydrate [Mondoxyne Nl] 100 mg PO BID #14 capsule 04/18/17 Metoclopramide HCl [Reglan -] 10 mg PO QID #120 tablet 11/15/17 Asthma: No Cancer: No Cardiac Disorders: No COPD: No Diabetes: No HTN: No Seizures: No Thyroid Disease: No - Surgical History Cholecystectomy: Yes - Suicide/Smoking/Psychosocial Hx Smoking History: Never smoked Information on smoking cessation initiated: No Hx Alcohol Use: No Drug/Substance Use Hx: No Substance Use Type: None Hx Substance Use Treatment: No Review of Systems - Review of Systems Comments:: 12/21/17 14:50 GENERAL/CONSTITUTIONAL: No fever or chills. No weakness. HEAD, EYES, EARS, NOSE AND THROAT: No change in vision. No ear pain or discharge. No sore throat.- CARDIOVASCULAR: No chest pain or shortness of breath RESPIRATORY: No cough, wheezing, or hemoptysis. GASTROINTESTINAL: No nausea, vomiting, diarrhea or constipation. GENITOURINARY: +Vaginal bleeding. No dysuria, frequency, or change in urination. MUSCULOSKELETAL: No joint or muscle swelling or pain. No neck or back pain. SKIN: No rash NEUROLOGIC: No headache, vertigo, loss of consciousness, or change in strength/ sensation. ENDOCRINE: No increased thirst. No abnormal weight change HEMATOLOGIC/LYMPHATIC: No anemia, easy bleeding, or history of blood clots. ALLERGIC/IMMUNOLOGIC: No hives or skin allergy. *Physical Exam - Vital Signs Last Vital Signs Temp Pulse Resp BP Pulse Ox 98.3 F 78 18 112/60 100 12/21/17 13:28 12/21/17 13:28 12/21/17 13:28 12/21/17 13:28 12/21/17 13:28 - Physical Exam Comments: 12/21/17 14:50 GENERAL: Awake, alert, and fully oriented, in no acute distress HEAD: No signs of trauma, normocephalic, atraumatic EYES: PERRLA, EOMI, sclera anicteric, conjunctiva clear ENT: Hearing grossly normal, nares patent, oropharynx clear without exudates. Moist mucosa NECK: Normal ROM, supple, no JVD, or masses LUNGS: No distress, speaks full sentences, clear to auscultation bilaterally HEART: Regular rate and rhythm, normal S1 and S2, no murmurs, rubs or gallops, peripheral pulses normal and equal bilaterally. ABDOMEN: Soft, nontender, normoactive bowel sounds. No guarding, no rebound. No masses. Neg CVA ttp. Vaginal exam: Cervical os closed, with absent bleeding, or discharge. Absent cervical motion tenderness on bimanual exam. EXTREMITIES : Normal inspection, Normal range of motion, no edema. No clubbing or cyanosis. SKIN: Warm, Dry, normal turgor, no rashes or lesions noted. 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 Denies N/V, F/C, urinary complaints, diarrhea, constipation, abdominal pain, vaginal discharge, burning, lightheadedness, LOC. No HONEY PRODUCER. Denies tobacco or alcohol use. Hemodynamically stable. Physical exam unremarkable. Cervical os closed, with no active bleeding , or discharge. Absent cervical motion tenderness. (11/14/18) No FHR visualized on transvaginal U/S at 6 wga. Placenta vaginal bleeding in concerning for threatened vs. placenta previa. Will also consider subchorionic hemorrhage. ED Course: CBC, CMP, BHCG UA, UCx Transabdominal U/S 12/21/17 15:52 Transabdominal bedside U/S: No IUP visualized. 12/21/17 15:56 Transvaginal U/S: No visible IUP. Absent yolk sac. Mod. large subchronionic hemorrhage 12/21/17 17:54 Dr. Schofield patient will need to f/u with him within the next 24-72 hours. Will attempt to allow pt. to pass retained POC on her own before medical therapy or D &C. Patient stable for discharge with return precautions. *DC/Admit/Observation/Transfer Diagnosis at time of Disposition: Vaginal bleeding in patient at less than 20 weeks gestation - Discharge Dispostion Disposition: HOME Condition at time of disposition: Stable Admit: No - Referrals Referrals: Jessika Aguilera [Primary Care Provider] - Artem Granado MD [Staff Physician] - - Patient Instructions Printed Discharge Instructions: DI for Miscarriage Additional Instructions: Please return to the emergency department with any new or worsening symptoms or concerns. Please follow up with Structural Mill Supervisor tomorrow at scheduled apt. 1: 30 pm. - Post Discharge Activity - Attestations Physician Attestion: 12/21/17 18:06 I attest to the documentation provided in this note.
[2017-12-21 15:44] LABS: BASO % 1.1 % (0-2.0); HEMATOCRIT 37.9 % (32.4-45.2); HEMOGLOBIN 12.4 GM/dL (10.7-15.3); LYMPH % 46.5 % (8-40); MCH 27.5 pg (25.7-33.7); MCHC 32.7 g/dl (32.0-36.0); MEAN PLT VOLUME 9.3 fl (7.5-11.1); MONO % 6.4 % (3.8-10.2); PLATELET COUNT 269 K/MM3 (134-434); RBC 4.51 M/mm3 (3.60-5.2); WHITE BLOOD COUNT 4.3 K/mm3 (4.0-10.0)
[2017-12-21 15:59] LABS: ANION GAP 7 (8-16); BILIRUBIN,TOTAL 0.3 mg/dL (0.2-1.0); BLOOD UREA NITROGEN 8 mg/dL (7-18); CALCIUM 8.6 mg/dL (8.5-10.1); CHLORIDE 104 mmol/L (98-107); CO2 24 mmol/L (21-32); CREATININE 0.6 mg/dL (0.55-1.02); GLUCOSE,RANDOM 77 mg/dL (74-106); SGPT/ALT 22 U/L (12-78); SODIUM 135 mmol/L (136-145); TOT PROT 7.6 g/dl (6.4-8.2)
[2017-12-21 16:00] LABS: ALK PHOS 91 U/L (45-117)
--- NOTE | 2017-12-21 16:11 | PDOC ---
Attending Attestation - Resident Resident Name: Serg Bazan - ED Attending Attestation I have performed the following: I have examined & evaluated the patient, The case was reviewed & discussed with the resident, I agree w/resident's findings & plan, Exceptions are as noted - Medical Decision Making 12/21/17 16:09 27-year-old female presents with vaginal bleeding and no abdominal cramping. She states she is approximately 13 weeks . Vitals unremarkable. Bedside ultrasound with empty gestational sac, concerning for demise. Will obtain blood work and transvaginal ultrasound. Previous type and screen in our system is A+. Transvaginal ultrasound is pending, patient has been signed out to Dr. Valladares for further management and disposition. <Nassef,Karlomna - Last Filed: 12/21/17 16:11> - HPI HPI: 12/21/17 16:17 The patient is a 27 year old female who is 13 weeks with no other significant PMH who presents to the emergency department with vaginal bleeding beginning approximately yesterday evening. The patient notes she noted some scant vaginal spotting on her undergarments yesterday. Today she reports squatting and noticing some bright red blood with intermixed clotting, prompting her visit. She reports not following with AVIONICS REPAIR TECHNICIAN since her previous ER visit at 6 weeks. She denies any cramping or abd pain. Denies f/c, n/v/d, weakness, numbness, LE edema, headaches. Allergies: Morphine, Oxycodone. PCP: Dr. Aguilera - Physicial Exam PE: 12/21/17 16:17 GENERAL: Awake, alert, and fully oriented, in no acute distress HEAD: No signs of trauma EYES: PERRLA, EOMI, sclera anicteric, conjunctiva clear ENT: Auricles normal inspection, hearing grossly normal, nares patent, oropharynx clear without exudates. Moist mucosa NECK: Normal ROM, supple, no lymphadenopathy, JVD, or masses LUNGS: Breath sounds equal, clear to auscultation bilaterally. No wheezes, and no crackles HEART: Regular rate and rhythm, normal S1 and S2, no murmurs, rubs or gallops ABDOMEN: Soft, nontender, normoactive bowel sounds. No guarding, no rebound. No masses. Gravid uterus to pupic symphasis. PATIENT LIAISON: agree with resident exam. EXTREMITIES: Normal range of motion, no edema. No clubbing or cyanosis. No cords , erythema, or tenderness BACK: No midline spinal tenderness in cervical/thoracic/lumbar region NEUROLOGICAL: Normal speech, cranial nerves intact, negative pronator drift, 5/ 5 strength in all 4 extremities, normal sensation to light touch in all 4 extremities, normal cerebellar exam, normal gait, normal reflexes and tone SKIN: Warm, Dry, normal turgor, no rashes or lesions noted. Bedside transabd sono: empty gestational sac with no fetus noted. <Cristi Dean - Last Filed: 12/21/17 16:17>
[2017-12-21 16:13] LABS: POTASSIUM 4.6 mmol/L (3.5-5.1); SGOT/AST 19 U/L (15-37)
[2017-12-21 16:45] LABS: INR 1.13 (0.82-1.09); PROTHROMBIN TIME (PATIENT) 12.8 SEC (9.98-11.88)
[2017-12-21 16:50] LABS: URINE APPEARANCE SLCLOUDY; URINE BILIRUBIN NEGATIVE (NEGATIVE); URINE BLOOD 3+ (NEGATIVE); URINE COLOR YELLOW; URINE GLUCOSE (UA) NEGATIVE (NEGATIVE); URINE KETONE NEGATIVE (NEGATIVE); URINE LEUK ESTERASE NEGATIVE (NEGATIVE); URINE NITRITE NEGATIVE (NEGATIVE); URINE PROTEIN NEGATIVE (NEGATIVE); URINE UROBILINOGEN NEGATIVE mg/dL (0.2-1.0)
[2017-12-21 17:14] LABS: EPI CELLS FEW /HPF (FEW); URINE MUCUS RARE
--- NOTE | 2017-12-21 17:21 | PDOC ---
*Physical Exam - Vital Signs Last Vital Signs Temp Pulse Resp BP Pulse Ox 98.3 F 78 18 112/60 100 12/21/17 13:28 12/21/17 13:28 12/21/17 13:28 12/21/17 13:28 12/21/17 13:28 - Physical Exam Comments: 12/21/17 17:18 gen: aaox3, nad abd: soft, nt/nd +bs bedside transabd ultrasound- gestational sac without IUP ED Treatment Course - LABORATORY CBC & Chemistry Diagram: 12/21/17 15:22 12/21/17 15:22 - ADDITIONAL ORDERS Additional order review: Laboratory Results 12/21/17 12/21/17 12/21/17 15:29 15:22 15:22 PT with INR 12.80 H INR 1.13 Sodium 135 L Potassium 4.6 Chloride 104 Carbon Dioxide 24 Anion Gap 7 L BUN 8 Creatinine 0.6 Creat Clearance w eGFR > 60 Random Glucose 77 Calcium 8.6 Total Bilirubin 0.3 AST 19 ALT 22 Alkaline Phosphatase 91 Total Protein 7.6 Albumin 4.0 Beta HCG, Quant Urine Color Yellow Urine Appearance Slcloudy Urine pH 5.0 Ur Specific [place] 1.020 Urine Protein Negative Urine Glucose (UA) Negative Urine Ketones Negative Urine Blood 3+ H Urine Nitrite Negative Urine Bilirubin Negative Urine Urobilinogen Negative Ur Leukocyte Esterase Negative 12/21/17 15:21 PT with INR INR Sodium Potassium Chloride Carbon Dioxide Anion Gap BUN Creatinine Creat Clearance w eGFR Random Glucose Calcium Total Bilirubin AST ALT Alkaline Phosphatase Total Protein Albumin Beta HCG, Quant 23576.3 Urine Color Urine Appearance Urine pH Ur Specific [place] Urine Protein Urine Glucose (UA) Urine Ketones Urine Blood Urine Nitrite Urine Bilirubin Urine Urobilinogen Ur Leukocyte Esterase 12/21/17 15:22 RBC 4.51 MCV 84.0 MCHC 32.7 RDW 13.0 MPV 9.3 Neutrophils % 44.0 Lymphocytes % 46.5 H Monocytes % 6.4 Eosinophils % 2.0 Basophils % 1.1 Medical Decision Making - Medical Decision Making 12/21/17 17:19 a/p: 27yo female signed out pending ultrasound result and discussion with METAL MINER -ultrasound shows subchorionic hemorrhage, also shows gestational sac without IUP -call placed to Dr. Dailey/Loy 12/21/17 18:07 discussed lab and ultrasound results with the patient has appt with METAL MINER at [facility] tomorrow resident discussed case with Dr. Granado who recommends keeping appt for tomorrow at 130 discussed plan and expectant management with the patient and her significant other answered all questions *DC/Admit/Observation/Transfer Diagnosis at time of Disposition: Vaginal bleeding in patient at less than 20 weeks gestation, Subchorionic hematoma in first trimester - Discharge Dispostion Disposition: HOME Condition at time of disposition: Stable - Referrals Referrals: Jessika Aguilera [Primary Care Provider] - Artem Granado MD [Staff Physician] - - Patient Instructions Printed Discharge Instructions: DI for Miscarriage Additional Instructions: Please return to the emergency department with any new or worsening symptoms or concerns. Please follow up with Jacquard Fixer tomorrow at scheduled apt. 1: 30 pm. - Post Discharge Activity
== END 2017-12-21 18:45 | disposition home or self-care (01) ==
LOC: JER 13:11
DX: O26.891 Other specified pregnancy related conditions, first trimester (principal); O20.8 Other hemorrhage in early pregnancy; O41.8X10 Other specified disorders of amniotic fluid and membranes, first trimester, not applicable or unspecified; Z3A.13 13 weeks gestation of pregnancy
CPT/HCPCS: 36415; 76801-TC; 76817-TC; 80053; 81003; 81015; 84702; 85025; 85610; 87086; 99283-25

== ENCOUNTER 2017-12-27 03:15 | Emergency (ER) | payer OTHER ==
[2017-12-27 03:24] VITALS: BMI 24.6
[2017-12-27] MEDS ORDERED: SODIUM CHLORIDE 1,000 ML IV STA (04:46)
--- NOTE | 2017-12-27 05:06 | PDOC ---
History of Present Illness - General Chief Complaint: Vaginal Bleeding Stated Complaint: VAGINAL BLEEDING Time Seen by Provider: 12/27/17 04:13 History Source: Patient Exam Limitations: No Limitations - History of Present Illness Initial Comments: CHIEF COMPLAINT: 27 y/o female BIB EMS for near syncope. HISTORY OF PRESENT ILLNESS: The patient states she was 13 weeks when the ultrasound revealed no heartbeat. Dr. Poole prescribed her misoprostol , the first dose of which she took yesterday early evening. She states a few hours after taking the pill she started having vaginal bleeding with clots. When she was in the shower a gush of blood came out and she felt like she was going to faint. her boyfriend caught her before falling. She states she has felt dizzy a few other times since then. She also admits to abdominal cramping. She denies head trauma, seizures, nausea, vomiting. Vital signs on arrival are notable for pulse of 106. REVIEW OF SYSTEMS: GENERAL/CONSTITUTIONAL: No fever/chills. No weakness. No weight change. HEAD, EYES, EARS, NOSE AND THROAT: No change in vision. No ear pain or discharge. No sore throat. CARDIOVASCULAR: No chest pain or shortness of breath. RESPIRATORY: No cough, wheezing, or hemoptysis. GASTROINTESTINAL: +lower abd cramping. No nausea, vomiting, diarrhea. GENITOURINARY: No dysuria, frequency, or change in urination. MUSCULOSKELETAL: No joint or muscle swelling or pain. No neck or back pain. SKIN: No rash or easy bruising. NEUROLOGIC: +dizziness and syncope. No headache. PHYSICAL EXAM: GENERAL: The patient is awake, alert, and fully oriented, in no acute distress. HEAD: Normal with no signs of trauma. ENT: Pupils equal, round and reactive to light, extraocular movements intact, sclera anicteric, conjunctiva clear. Neck supple. LUNGS: Clear to auscultation bilaterally. Normal excursion. No respiratory distress or use of accessory muscles. CV: Rapid rate/regular rhythm, S1/S2, no MRG. Cap refill < 2 sec. ABDOMEN: Soft, non-distended, non-tender even to deep palpation, no hepatomegaly or splenomegaly, no masses. EXTREMITIES: Normal range of motion, no edema. NEUROLOGICAL: Normal speech, normal gait. CN II-XII grossly intact. PSYCH: Normal mood, normal affect. SKIN: Warm, dry, normal turgor, no rashes or lesions noted. Past History - Past Medical History Allergies/Adverse Reactions: Allergies Allergy/AdvReac Type Severity Reaction Status Date / Time morphine Allergy Intermediate Verified 12/27/17 03:24 oxycodone Allergy Mild Verified 12/27/17 03:24 Home Medications: Ambulatory Orders NK [No Known Home Medication] 12/27/17 Asthma: No Cancer: No Cardiac Disorders: No COPD: No Diabetes: No HTN: No Seizures: No Thyroid Disease: No - Surgical History Cholecystectomy: Yes - Reproductive History Is Patient Now?: No (as per patient) (#): 2 Para: 1 - Suicide/Smoking/Psychosocial Hx Smoking History: Never smoked Have you smoked in the past 12 months: No Information on smoking cessation initiated: No Hx Alcohol Use: No Drug/Substance Use Hx: No Substance Use Type: None Hx Substance Use Treatment: No *Physical Exam - Vital Signs Last Vital Signs Temp Pulse Resp BP Pulse Ox 97.8 F 106 H 20 103/51 97 12/27/17 03:22 12/27/17 03:22 12/27/17 03:22 12/27/17 03:22 12/27/17 03:22 ED Treatment Course - LABORATORY CBC & Chemistry Diagram: 12/27/17 06:20 12/27/17 05:00 Medical Decision Making - Medical Decision Making A/P: 27 y/o female with dizziness and multiple episodes of syncope without head trauma since vaginal bleeding started this evening. Plan is as follows: 1. labs 2. IV fluids I am signing this patient out to my colleague: SOL Bear In brief, this patient is being seen in the ED for a chief complaint of: syncopal episodes I have completed the initial assessment interview note and have ordered: labs I have reviewed the following results: CMP Pending results are: CBC Plan for disposition is as follows: After IV fluids and CBC results dispo accordingly *DC/Admit/Observation/Transfer Diagnosis at time of Disposition: Dehydration, Vaginal bleeding - Discharge Dispostion Disposition: HOME Condition at time of disposition: Fair - Referrals Referrals: Anai Dailey MD [Staff Physician] - - Patient Instructions Printed Discharge Instructions: DI for Miscarriage Additional Instructions: Your hormone level is decreasing today. You are probably feeling lightheaded due to the miscarriage. Please drink plenty of fluids. Since you have passed the you may stop taking the mediation. Please follow-up with your LICENSED VOCATIONAL NURSE doctor this week. Return to the emergency department if you have worsening lightheadedness, abdominal pain, dizziness, loss of consciousness, or any changes in her symptoms. - Post Discharge Activity
[2017-12-27 06:09] LABS: ALBUMIN 3.6 g/dl (3.4-5.0); ALK PHOS 76 U/L (45-117); ANION GAP 9 (8-16); BILIRUBIN,TOTAL 0.2 mg/dL (0.2-1.0); BLOOD UREA NITROGEN 13 mg/dL (7-18); CALCIUM 8.7 mg/dL (8.5-10.1); CHLORIDE 104 mmol/L (98-107); CO2 25 mmol/L (21-32); CREATININE 0.7 mg/dL (0.55-1.02); GLUCOSE,RANDOM 119 mg/dL (74-106); SGPT/ALT 21 U/L (12-78); SODIUM 138 mmol/L (136-145); TOT PROT 6.7 g/dl (6.4-8.2)
[2017-12-27 06:13] LABS: POTASSIUM 4.6 mmol/L (3.5-5.1); SGOT/AST 20 U/L (15-37)
[2017-12-27 07:04] LABS: BASO % 0.5 % (0-2.0); EOS % 1.7 % (0-4.5); HEMATOCRIT 28.1 % (32.4-45.2); HEMOGLOBIN 9.1 GM/dL (10.7-15.3); LYMPH % 25.1 % (8-40); MCH 27.2 pg (25.7-33.7); MCHC 32.5 g/dl (32.0-36.0); MEAN CELL VOLUME 83.8 fl (80-96); MEAN PLT VOLUME 8.4 fl (7.5-11.1); MONO % 6.4 % (3.8-10.2); NEUT % 66.3 % (42.8-82.8); PLATELET COUNT 205 K/MM3 (134-434); RBC 3.35 M/mm3 (3.60-5.2); RDW 13.1 % (11.6-15.6); WHITE BLOOD COUNT 8.4 K/mm3 (4.0-10.0)
--- NOTE | 2017-12-27 08:01 | PDOC ---
*Physical Exam - Vital Signs Last Vital Signs Temp Pulse Resp BP Pulse Ox 97.8 F 106 H 20 103/51 97 12/27/17 03:22 12/27/17 03:22 12/27/17 03:22 12/27/17 03:22 12/27/17 03:22 - Physical Exam General Appearance: Yes: Nourished, Appropriately Dressed. No: Apparent Distress Respiratory/Chest: positive: Lungs Clear, Normal Breath Sounds. negative: Respiratory Distress, Accessory Muscle Use, Rhonchi, Stridor, Wheezing Cardiovascular: positive: Regular Rhythm, Regular Rate, S1, S2 (present). 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 II-XII NML intact, Fully Oriented, Alert, Normal Mood/ Affect, Normal Response, Motor Strength 03/24 ED Treatment Course - LABORATORY CBC & Chemistry Diagram: 12/27/17 06:20 12/27/17 05:00 - ADDITIONAL ORDERS Additional order review: Laboratory Results 12/27/17 05:00 Sodium 138 Potassium 4.6 Chloride 104 Carbon Dioxide 25 Anion Gap 9 BUN 13 Creatinine 0.7 Creat Clearance w eGFR > 60 Random Glucose 119 H Calcium 8.7 Total Bilirubin 0.2 D AST 20 ALT 21 Alkaline Phosphatase 76 Total Protein 6.7 Albumin 3.6 12/27/17 06:20 RBC 3.35 L D MCV 83.8 MCHC 32.5 RDW 13.1 MPV 8.4 Neutrophils % 66.3 D Lymphocytes % 25.1 D Monocytes % 6.4 Eosinophils % 1.7 Basophils % 0.5 - Medications Given in the ED: ED Medications Discontinued Medications Generic Name Dose Route Start Last Admin Trade Name Freq PRN Reason Stop Dose Admin Sodium Chloride 1,000 mls @ 1,000 mls/hr 12/27/17 04:46 12/27/17 05:37 Normal Saline - IV 12/27/17 05:45 1,000 mls/hr ASDIR STA Administration Medical Decision Making - Medical Decision Making 12/27/17 08:16 Sign out received from SOL Travis, pt. is pending labs and re-evaluation after 1 L of IVF (NS). Pt. presented to the ED after near syncope from vaginal bleeding. Pt. was seen on 12/21/17 in our ED and diagnosed with demise. Was seen by [employer] and given Cytotec. Pt. had bleeding and passed multiple clots and blood. States that she "passed out/almost passed out" Denies head trauma as her boyfriend caught her before she fell. On repeat exam pt. states she feels much better and has no abdominal pain. CBC shows HGB of 9.1, 4 point from from 12/21/17, but to be expected in the setting of miscarriage. Pt. is not symptomatic at this time, VSS, afebrile, walking without shortness of breath. No gross abnormalities in CMP. Pending Beta -HCG 12/27/17 10:42 Beta-HCG is trending down at this time. 20,000 on 12/21, 5,000 now. Paged Pt's OB Asim for further out patient management at this time 12/27/17 10:54 Dr. 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 Asking to page her service for management 12/27/17 11:[address] Hassan. Service states he is in surgery until 12. Will wait for call. 12/27/17 12:[address] Hassan 12/27/07 12:59 Dr. Hassan states he is not field ironworker today and requesting we page the field ironworker service despite this being a patient of Dr. Dailey's. Will page Dr. Gu now 12/27/17 13: [address] Gu to discuss case and home medications. States that since the pt passed contents and is still bleeding, further cytotec is no longer needed. Pt. has follow up with Dr. Dailey for Monday. Instructed pt to keep her follow up appointment and gave strict return precautions. Will d/c patient home at this time. Pt agrees with plan, understands all d/c instructions and all questions were answered at this time. 12/27/17 13:30 *DC/Admit/Observation/Transfer Diagnosis at time of Disposition: Dehydration, Vaginal bleeding - Discharge Dispostion Disposition: HOME Condition at time of disposition: Fair Admit: No - Referrals Referrals: Anai Dailey MD [Staff Physician] - - Patient Instructions Printed Discharge Instructions: DI for Miscarriage Additional Instructions: Your hormone level is decreasing today. You are probably feeling lightheaded due to the miscarriage. Please drink plenty of fluids. Since you have passed the you may stop taking the mediation. Please follow-up with your [employer] doctor this week. Return to the emergency department if you have worsening lightheadedness, abdominal pain, dizziness, loss of consciousness, or any changes in her symptoms. - Post Discharge Activity
[2017-12-27 12:25] VITALS: BP 99/63; PULSE 100; TEMP 97.7
== END 2017-12-27 13:38 | disposition home or self-care (01) ==
LOC: SUPCPDRO 03:15 → JER 03:15
PROC: 3E0337Z Introduction of Electrolytic and Water Balance Substance into Peripheral Vein, Percutaneous Approach (ICD-10-PCS; principal; 2017-12-27)
DX: E86.0 Dehydration (principal); N93.9 Abnormal uterine and vaginal bleeding, unspecified
CPT/HCPCS: 36415; 80053; 84702; 85025; 86850; 86900; 86901; 96360; 99283-25

== ENCOUNTER 2018-09-07 09:32 | Emergency (ER) | payer OTHER ==
[2018-09-07 09:53] VITALS: BP 116/69; PULSE 94; TEMP 99; BMI 33.4
--- NOTE | 2018-09-07 10:34 | PDOC ---
History of Present Illness - General Chief Complaint: Vaginal Sxs Stated Complaint: IRREGULAR VAGINAL DISCHARGE (12 WKS ) Time Seen by Provider: 09/07/18 09:53 History Source: Patient Exam Limitations: No Limitations - History of Present Illness Travel History: No Initial Comments: 09/07/18 18:28 28 yr female with vaginal itching and discharge. started yesterday denies abd pain or bleeding no back pain. Pt states 12 weeks . Past History - Past Medical History Allergies/Adverse Reactions: Allergies Allergy/AdvReac Type Severity Reaction Status Date / Time morphine Allergy Intermediate Verified 12/27/17 03:24 oxycodone Allergy Mild Verified 12/27/17 03:24 Home Medications: Ambulatory Orders Clotrimazole [Clotrimazole-7] 45 gm VG HS #7 cream.appl 09/07/18 Asthma: No Cancer: No Cardiac Disorders: No COPD: No Diabetes: No HTN: No Seizures: No Thyroid Disease: No - Surgical History Cholecystectomy: Yes - Reproductive History (#): 2 Para: 1 - Suicide/Smoking/Psychosocial Hx Smoking History: Never smoked Have you smoked in the past 12 months: No Hx Alcohol Use: No Drug/Substance Use Hx: No Substance Use Type: None Hx Substance Use Treatment: No Abd/GI Specific PMHX - Complaint Specific PMHX Colitis: No Diverticulitis: No Review of Systems - Review of Systems Able to Perform ROS?: Yes Is the patient limited Romansh proficient: No : Yes: Symptoms Reported, Discharge *Physical Exam - Vital Signs Last Vital Signs Temp Pulse Resp BP Pulse Ox 99.0 F 94 H 18 116/69 100 09/07/18 09:50 09/07/18 09:50 09/07/18 09:50 09/07/18 09:50 09/07/18 09:50 - Physical Exam General Appearance: Yes: Nourished, Appropriately Dressed HEENT: positive: EOMI, HIRAM, Normal ENT Inspection, TMs Normal, Pharynx Normal Neck: positive: Supple. negative: Tender Respiratory/Chest: positive: Lungs Clear, Normal Breath Sounds Cardiovascular: positive: Regular Rhythm, Regular Rate Female Pelvic Exam: positive: normal external exam, cervical os closed, discharge (thick white chunky ) Gastrointestinal/Abdominal: positive: Normal Bowel Sounds, Soft. negative: Tender Musculoskeletal: positive: Normal Inspection Extremity: positive: Normal Capillary Refill, Normal Inspection, Normal Range of Motion Integumentary: positive: Normal Color, Dry Neurologic: positive: Fully Oriented, Alert, Normal Mood/Affect, Normal Response , Motor Strength 5/5 Medical Decision Making - Medical Decision Making 09/07/18 18:29 cc: itchy vaginal area with discharge for 1-2 days no abd pain or urinary discomfort will treat for vaginal yeast infection, cultures pending for any other organisms. pt agrees with plan all questions asked and answered *DC/Admit/Observation/Transfer Diagnosis at time of Disposition: Yeast infection - Discharge Dispostion Disposition: HOME Condition at time of disposition: Good - Prescriptions Prescriptions: Clotrimazole [Clotrimazole-7] 45 gm VG HS #7 cream.appl - Referrals Schedule a call back: vaginal cultures - Patient Instructions Printed Discharge Instructions: DI for Vaginal Itching Additional Instructions: cool water to bathe use the medication as prescribed avoid any sexual contact until symptoms have resolved follow up with your needle straightener as needed - Post Discharge Activity
[2018-09-07 11:03] LABS: URINE APPEARANCE CLOUDY; URINE BILIRUBIN NEGATIVE (<2.0 mg/dL); URINE COLOR DKYELLOW; URINE GLUCOSE (UA) NEGATIVE (NEGATIVE); URINE KETONE NEGATIVE (NEGATIVE); URINE LEUK ESTERASE 3+ (NEGATIVE); URINE NITRITE NEGATIVE (NEGATIVE); URINE PROTEIN 1+ (NEGATIVE)
[2018-09-07 11:20] LABS: EPI CELLS MANY /HPF (FEW); URINE MUCUS MANY
== END 2018-09-07 10:44 | disposition home or self-care (01) ==
LOC: JERFT 09:32
DX: B37.3 Candidiasis of vulva and vagina (principal)
CPT/HCPCS: 36415; 81003; 81015; 87491; 87591; 87661; 99281-25

== ENCOUNTER 2019-03-10 02:00 | Inpatient (IN) | payer OTHER ==
[2019-03-10] MEDS ORDERED: DEXTROSE 5%-LACTATED RINGERS 1,000 ML IV ONE (02:30)
[2019-03-10] MEDS ORDERED: ELECTROLYTE-148 SOLN 1,000 ML IV ONE (06:11)
[2019-03-10] MEDS ORDERED: CITRIC ACID/SODIUM CITRATE 30 ML UNIT-DOSE CUP PO ONE (07:42)
[2019-03-10] MEDS ORDERED: ELECTROLYTE-148 SOLN 500 ML IV ONE (07:42)
--- NOTE | 2019-03-10 07:49 | HP ---
Past Medical History - Admission Chief Complaint: Back pain History of Present Illness: 28 yo , @ 38 weeks gestations, EDC 03/22/19, with 2 previous C-sections, presented to L&D c/o back pain. She had a BPP of 4 out of 8. Upon examination she was 4cm dilated. History Source: Patient Limitations to Obtaining History: No Limitations - Past Medical History Hepatobiliary: Yes: Choledocholithiasis (operated in 2010) ...: 4 ...Para: 2 ...Term: 0 ...: 2 ...Spon : 1 ...Induced : 0 ...LMP: 06/15/18 ... Weeks Gestation by Dates: 38 ...EDC by Dates: 04/01/19 Heme/Onc: Yes: Anemia - Past Surgical History Past Surgical History: Yes: Cholecystectomy (2010 at [facility]), ( prom at [facility]) Hx Myomectomy: No Hx Transabdominal Cerclage: No - Smoking History Smoking history: Never smoked Have you smoked in the past 12 months: No - Alcohol/Substance Use Hx Alcohol Use: No History of Substance Use: reports: None Home Medications - Allergies Allergies/Adverse Reactions: Allergies Allergy/AdvReac Type Severity Reaction Status Date / Time morphine Allergy Intermediate Itching Verified 02/27/19 00:02 oxycodone Allergy Mild Itching Verified 02/27/19 00:02 - Home Medications Home Medications: Ambulatory Orders Ferrous Sulfate [Feosol] 325 mg PO DAILY 02/18/19 Vit 108/Iron/Folic AC [ One Tablet] 1 each PO DAILY 02/18/19 Review of Systems - Review of Systems Constitutional: reports: No Symptoms Eyes: reports: No Symptoms HENT: reports: No Symptoms Neck: reports: No Symptoms Cardiovascular: reports: No Symptoms Respiratory: reports: No Symptoms Gastrointestinal: reports: No Symptoms Genitourinary: reports: Pain Breasts: reports: No Symptoms Reported Musculoskeletal: reports: No Symptoms Integumentary: reports: No Symptoms Neurological: reports: No Symptoms Endocrine: reports: No Symptoms Hematology/Lymphatic: reports: No Symptoms Psychiatric: reports: No Symptoms Pain Intensity: 3 Physical Exam - Maternity Vital Signs: Vital Signs Temperature 98.7 F 03/10/19 02:30 Pulse Rate 97 H 03/10/19 02:30 Respiratory Rate 20 03/10/19 02:30 Blood Pressure 117/72 03/10/19 02:30 O2 Sat by Pulse Oximetry (%) Constitutional: Yes: Well Nourished Eyes: Yes: Conjunctiva Clear HENT: Yes: Atraumatic Neck: Yes: Supple Cardiovascular: Yes: Regular Rate and Rhythm Lungs: Clear to auscultation - Abdominal Exam/OB Number of Fetuses: Single Presentation: Vertex - Vaginal Exam/OB Station: -2 - Physical Exam Musculoskeletal: Yes: WNL Extremities: Yes: WNL ...Motor Strength: WNL Psychiatric: Yes: Alert, Oriented Problem List - Problems (1) Previous section Code(s): Z98.891 - HISTORY OF UTERINE SCAR FROM PREVIOUS SURGERY (2) 38 weeks gestation of Code(s): Z3A.38 - 38 WEEKS GESTATION OF Assessment/Plan 38 weeks gestation Previous Early labor Consent signed for repeat and BTL Prep and shave Anesthesia to see patient
[2019-03-10 08:03] LABS: BASO % 1.1 % (0-2.0); EOS % 0.5 % (0-4.5); HEMATOCRIT 29.4 % (32.4-45.2); HEMOGLOBIN 9.5 GM/dL (10.7-15.3); LYMPH % 31.4 % (8-40); MCH 24.9 pg (25.7-33.7); MCHC 32.4 g/dl (32.0-36.0); MEAN CELL VOLUME 76.8 fl (80-96); MEAN PLT VOLUME 8.8 fl (7.5-11.1); MONO % 7.2 % (3.8-10.2); NEUT % 59.8 % (42.8-82.8); PLATELET COUNT 227 K/MM3 (134-434); RBC 3.82 M/mm3 (3.60-5.2)
[2019-03-10] MEDS ORDERED: ONDANSETRON 4 MG/2 ML VIAL IVPUSH PRN (08:08)
[2019-03-10] MEDS ORDERED: morphine SULFATE/Preservative Free 0.5 MG/ML (1cc Syringe) ONE (08:08)
[2019-03-10] MEDS ORDERED: ceFAZolin SODIUM 1 GM VIAL ONE (08:09)
[2019-03-10 08:18] LABS: ANION GAP 8 MMOL/L (8-16); BLOOD UREA NITROGEN 4 mg/dL (7-18); CALCIUM 8.6 mg/dL (8.5-10.1); CHLORIDE 109 mmol/L (98-107); CO2 24 mmol/L (21-32); CREATININE 0.4 mg/dL (0.55-1.3); GLUCOSE,RANDOM 97 mg/dL (74-106); POTASSIUM 4.1 mmol/L (3.5-5.1); SODIUM 140 mmol/L (136-145)
[2019-03-10 08:25] LABS: PROTHROMBIN TIME (PATIENT) 11.8 SEC (9.7-13.0)
[2019-03-10] MEDS ORDERED: OXYTOCIN 10 UNITS/ML VIAL ONE (08:29)
[2019-03-10 08:41] VITALS: BMI 33.0
[2019-03-10] MEDS ORDERED: IBUPROFEN 800 MG/8 ML IJ IVPB PRN (09:03)
[2019-03-10] MEDS ORDERED: METHYLERGONOVINE MALEATE 0.2 MG/1 ML AMP IM PRN (09:03)
--- NOTE | 2019-03-10 09:07 | OP ---
Operative Note - Note: Operative Date: 03/10/19 Pre-Operative Diagnosis: Previous in labor / Nonreassuring FHR Operation: Repeat Low Transverse Findings: Baby girl in ROT position Post-Operative Diagnosis: Same as Pre-op Surgeon: Mercedez Gu Director Geothermal Operations: Roselyn Haines Anesthesia: Spinal Specimens Removed: Placenta Estimated Blood Loss (mls): 600 Operative Report Dictated: Yes
[2019-03-10] MEDS ORDERED: OXYTOCIN 20 UNITS in 0.9% NS 20 UNIT/1,000 ML INFUS.BAG IV SCH (09:15)
[2019-03-10] MEDS: FERROUS SO4 325 MG TABLET (FP) PO SCH ×2 (10:30→22:00)
[2019-03-10] MEDS: PRENATAL VITAMINS W/ FOLIC ACID TABLET (FP) PO SCH (10:31)
--- NOTE | 2019-03-11 04:22 | PN ---
Post Progress Note - Subjective Subjective: 28 yo Para 3 status post repeat , seen and evaluated. Doing well. Post Day: 1 Type of Delivery: Repeat C/S Vital Signs: Vital Signs Temperature 98.4 F 03/11/19 02:00 Pulse Rate 92 H 03/11/19 02:00 Respiratory Rate 18 03/11/19 03:00 Blood Pressure 119/73 03/11/19 02:00 O2 Sat by Pulse Oximetry (%) 100 03/10/19 10:30 Breast Exam: Yes: Soft Uterus: Yes: Fundus Firm Incision: Yes: Dressing dry and intact Abdomen/GI: Yes: Abdomen soft, Tolerating PO Lochia: Yes: Rubra Lochia, amount: Small Extremities: Yes: Calves non-tender Activity: Ambulating - Labs Labs: CBC WBC 7.0 K/mm3 (4.0-10.0) 03/10/19 07:55 RBC 3.82 M/mm3 (3.60-5.2) 03/10/19 07:55 Hgb 9.5 GM/dL (10.7-15.3) L 03/10/19 07:55 Hct 29.4 % (32.4-45.2) L 03/10/19 07:55 MCV 76.8 fl (80-96) L 03/10/19 07:55 MCH 24.9 pg (25.7-33.7) L 03/10/19 07:55 MCHC 32.4 g/dl (32.0-36.0) 03/10/19 07:55 RDW 16.0 % (11.6-15.6) H 03/10/19 07:55 Plt Count 227 K/MM3 (134-434) 03/10/19 07:55 MPV 8.8 fl (7.5-11.1) 03/10/19 07:55 Absolute Neuts (auto) 4.2 K/mm3 (1.5-8.0) 03/10/19 07:55 Neutrophils % 59.8 % (42.8-82.8) 03/10/19 07:55 Lymphocytes % 31.4 % (8-40) D 03/10/19 07:55 Monocytes % 7.2 % (3.8-10.2) 03/10/19 07:55 Eosinophils % 0.5 % (0-4.5) 03/10/19 07:55 Basophils % 1.1 % (0-2.0) 03/10/19 07:55 Nucleated RBC % 0 % (0-0) 03/10/19 07:55 Problem List - Problems (1) Previous section Code(s): Z98.891 - HISTORY OF UTERINE SCAR FROM PREVIOUS SURGERY (2) 38 weeks gestation of Code(s): Z3A.38 - 38 WEEKS GESTATION OF (3) Status post repeat low transverse section Code(s): Z98.891 - HISTORY OF UTERINE SCAR FROM PREVIOUS SURGERY Assessment/Plan Status post repeat Ambulation Analgesia as needed Continue routine post op care
[2019-03-11 07:21] LABS: BASO % 0.1 % (0-2.0); EOS % 0.6 % (0-4.5); HEMATOCRIT 31.4 % (32.4-45.2); HEMOGLOBIN 10.1 GM/dL (10.7-15.3); LYMPH % 6.5 % (8-40); MCH 24.3 pg (25.7-33.7); MCHC 32.2 g/dl (32.0-36.0); MEAN CELL VOLUME 75.4 fl (80-96); MONO % 5.9 % (3.8-10.2); NEUT % 86.9 % (42.8-82.8); PLATELET COUNT 228 K/MM3 (134-434); RBC 4.16 M/mm3 (3.60-5.2); RDW 16.2 % (11.6-15.6); WHITE BLOOD COUNT 11.6 K/mm3 (4.0-10.0)
[2019-03-11] MEDS ORDERED: BISACODYL 10 MG SUPP.RECT RC PRN (09:04)
[2019-03-11] MEDS: PRENATAL VITAMINS W/ FOLIC ACID TABLET (FP) PO SCH (09:04)
[2019-03-11] MEDS: FERROUS SO4 325 MG TABLET (FP) PO SCH ×2 (09:04→21:05)
--- NOTE | 2019-03-11 09:06 | PN ---
Progress Note (short form) - Note Progress Note: Anesthesia/pain Pt seen and examined S:Alert and awake comfortable O: Vital Signs Temperature 98.4 F 03/11/19 06:00 Pulse Rate 91 H 03/11/19 06:00 Respiratory Rate 18 03/11/19 06:00 Blood Pressure 110/61 03/11/19 06:00 O2 Sat by Pulse Oximetry (%) 100 03/10/19 10:30 CBC, BMP 03/11/19 06:45 03/10/19 07:55 A/P: Current Active Problems 38 weeks gestation of (Acute) Status post repeat low transverse section (Acute) doing well [post op Continue current care Zak Menchaca
[2019-03-11] MEDS ORDERED: FLU VACCINE QUAD 60 MCG/0.5 ML (MDV 18-19) IM ONE (10:00)
--- NOTE | 2019-03-11 11:41 | OP ---
DATE OF OPERATION: 03/10/2019 PREOPERATIVE DIAGNOSES: A 38 weeks' gestation, nonreassuring heart rate, and previous section in labor. POSTOPERATIVE DIAGNOSES: A 38 weeks' gestation, nonreassuring heart rate , and previous section in labor. PROCEDURE: Repeat low transverse section. SURGEON: Mercedez Gu MD COUNTER FORMER: Roselyn Haines MD ANESTHESIA: Spinal. COMPLICATIONS: None. ESTIMATED BLOOD LOSS: 600 mL. DESCRIPTION OF PROCEDURE: Patient was taken to the operating room where spinal anesthesia was administered. Patient was then prepped and draped in proper sterile fashion. A Pfannenstiel skin incision was then made and carried down through the underlying layer of fascia. The fascia was incised in the midline and extended laterally. The superior aspect of the fascial incision was then grasped with a Andreea clamp, elevated, and the rectus muscles dissected off bluntly. Attention was then turned to the anterior aspect of the fascial incision which in a similar fashion was then grasped with Andreea clamp, elevated, and the rectus muscle was dissected out bluntly. The rectus muscle was then in the midline. Then the vesicouterine peritoneum was then grasped with pickups and entered sharply with the Metzenbaum scissors. This incision was extended laterally, and a bladder flap created digitally. The bladder blade was then reinserted, and the lower uterine segment was incised using a 10 blade. This incision was extended laterally, and the head was delivered atraumatically. Nose and mouth were suctioned, and the cord clamped and cut. The infant was handed to the awaiting furniture crater. The placenta was removed manually. The uterus was exteriorized and cleared of all clots and debris. The uterine incision was repaired using 0 Biosyn in a running locked fashion. A second layer of the same suture was used as a means to provide excellent hemostasis. Then the right tube was grasped with the [place], and the 3-0 plain suture was used to tie a 2-cm segment of the tube twice, and this portion of the tube was then cut, and Bovie cautery was used to cauterize the end of the cut tube. Again, the same procedure was performed on the left side, and the pelvis was then copiously irrigated. The uterus was returned to the abdomen. Then the muscle of the peritoneum was then closed using 2-0 Biosyn. The fascia was reapproximated using 0 Vicryl in a running fashion. The skin was closed with brenda. Patient tolerated procedure well. Patient was then taken to PACU in stable condition. PATHOLOGY: Placenta and portion of the tubes. MERCEDEZ GU M.D. RICK/[id number] MTDD
[2019-03-11] MEDS: ACETAMINOPHEN 325 MG TABLET (FP) PO PRN ×2 (12:56→21:11)
[2019-03-11] MEDS: SIMETHICONE 80 MG TAB.CHEW (FP) PO PRN ×2 (12:56→21:10)
[2019-03-11] MEDS: IBUPROFEN 600 MG TABLET (FP) PO PRN ×2 (12:57→21:11)
[2019-03-12] MEDS: FERROUS SO4 325 MG TABLET (FP) PO SCH ×2 (09:06→21:01)
[2019-03-12] MEDS: PRENATAL VITAMINS W/ FOLIC ACID TABLET (FP) PO SCH (09:06)
--- NOTE | 2019-03-12 11:02 | PN ---
Post Progress Note - Subjective Subjective: Status post , doing well. Post Day: 1 Type of Delivery: Repeat C/S Vital Signs: Vital Signs Temperature 97.7 F 03/12/19 09:36 Pulse Rate 86 03/12/19 09:36 Respiratory Rate 20 03/12/19 09:36 Blood Pressure 118/63 03/12/19 09:36 O2 Sat by Pulse Oximetry (%) 100 03/10/19 10:30 Breast Exam: Yes: Soft Uterus: Yes: Fundus Firm Incision: Yes: Dressing dry and intact Abdomen/GI: Yes: Abdomen soft, Tolerating PO Lochia: Yes: Rubra Lochia, amount: Small Extremities: Yes: Calves non-tender Perineum: Yes: Intact Activity: Ambulating - Labs Labs: CBC WBC 11.6 K/mm3 (4.0-10.0) H 03/11/19 06:45 RBC 4.16 M/mm3 (3.60-5.2) 03/11/19 06:45 Hgb 10.1 GM/dL (10.7-15.3) L 03/11/19 06:45 Hct 31.4 % (32.4-45.2) L 03/11/19 06:45 MCV 75.4 fl (80-96) L 03/11/19 06:45 MCH 24.3 pg (25.7-33.7) L 03/11/19 06:45 MCHC 32.2 g/dl (32.0-36.0) 03/11/19 06:45 RDW 16.2 % (11.6-15.6) H 03/11/19 06:45 Plt Count 228 K/MM3 (134-434) 03/11/19 06:45 MPV 9.0 fl (7.5-11.1) 03/11/19 06:45 Absolute Neuts (auto) 10.1 K/mm3 (1.5-8.0) H 03/11/19 06:45 Neutrophils % 86.9 % (42.8-82.8) H D 03/11/19 06:45 Lymphocytes % 6.5 % (8-40) L D 03/11/19 06:45 Monocytes % 5.9 % (3.8-10.2) 03/11/19 06:45 Eosinophils % 0.6 % (0-4.5) 03/11/19 06:45 Basophils % 0.1 % (0-2.0) 03/11/19 06:45 Nucleated RBC % 0 % (0-0) 03/11/19 06:45 Problem List - Problems (1) Previous section Code(s): Z98.891 - HISTORY OF UTERINE SCAR FROM PREVIOUS SURGERY (2) 38 weeks gestation of Code(s): Z3A.38 - 38 WEEKS GESTATION OF (3) Status post repeat low transverse section Code(s): Z98.891 - HISTORY OF UTERINE SCAR FROM PREVIOUS SURGERY Assessment/Plan Status post repeat Ambulation Analgesia as needed Continue routine post op care
--- NOTE | 2019-03-12 15:54 | PATH ---
Surgical Pathology Report Patient Name: [facility]. Rec. 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 Specimen(s) Received A: PLACENTA B: PORTION OF RIGHT FALLOPIAN TUBE C: PORTION OF LEFT FALLOPIAN TUBE Clinical History , repeat Final Diagnosis A. PLACENTA, DELIVERY: FOCALLY DISRUPTED THIRD TRIMESTER PLACENTA WITH THREE VESSEL UMBILICAL CORD AND UNREMARKABLE PLACENTAL MEMBRANES. B. RIGHT FALLOPIAN TUBE, PARTIAL EXCISION: FULL LUMINAL PORTION OF UNREMARKABLE FALLOPIAN TUBE. C. LEFT FALLOPIAN TUBE, PARTIAL EXCISION: FULL LUMINAL PORTION OF UNREMARKABLE FALLOPIAN TUBE. Electronically Signed Fran Padron M.D. Gross Description A. The specimen is received fresh labeled placenta and is a 521 gram, 17.5 x 16.0 x 2.3 cm. placenta with attached membranes and umbilical cord. The attached membranes are raymond, thick, cloudy and insert marginally. The umbilical cord measures 19 cm. in length and averages 1.3 cm. in diameter. The cord inserts eccentrically, 5 cm. to the nearest margin. No true knots or strictures are identified. Cut surface of the umbilical cord reveals 3 vessels. The surface is bauer-blue with minimal fibrin deposition and appropriate caliber vessels. The maternal surface is red-brown with focal defects. Sectioning reveals red-brown, spongy parenchyma. No lesions are identified. Factory Machine Computer Operator sections are submitted in three cassettes as follows: 1- membrane rolls and umbilical cord; 2-3- full thickness sections of placenta. B. Received in formalin labeled "portion of right fallopian tube," is a 0.6 cm in length portion of fallopian tube. No fimbria are present. The outer surface is raymond-pink and smooth. Sectioning reveals an unremarkable lumen. The specimen is bisected and entirely submitted in one cassette. C. Received in formalin labeled "portion of left fallopian tube," is a 0.9 cm in length portion of fallopian tube. No fimbria are present. The outer surface is raymond-pink and smooth. Sectioning reveals an unremarkable lumen. Factory Machine Computer Operator sections are submitted in one cassette. DL/03/11/2019 saudi/03/11/2019
[2019-03-12] MEDS: IBUPROFEN 600 MG TABLET (FP) PO PRN (20:57)
[2019-03-12] MEDS: ACETAMINOPHEN 325 MG TABLET (FP) PO PRN (20:57)
[2019-03-12] MEDS: SIMETHICONE 80 MG TAB.CHEW (FP) PO PRN (20:58)
[2019-03-13 06:59] LABS: BASO % 0.2 % (0-2.0); EOS % 2.7 % (0-4.5); HEMATOCRIT 28.4 % (32.4-45.2); HEMOGLOBIN 9.3 GM/dL (10.7-15.3); LYMPH % 27.1 % (8-40); MCH 24.9 pg (25.7-33.7); MCHC 32.7 g/dl (32.0-36.0); MEAN CELL VOLUME 76.1 fl (80-96); MEAN PLT VOLUME 8.2 fl (7.5-11.1); MONO % 8.4 % (3.8-10.2); NEUT % 61.6 % (42.8-82.8); PLATELET COUNT 273 K/MM3 (134-434); RBC 3.73 M/mm3 (3.60-5.2); RDW 16.1 % (11.6-15.6); WHITE BLOOD COUNT 5.7 K/mm3 (4.0-10.0)
[2019-03-13 08:43] VITALS: BP 118/73; PULSE 71; TEMP 98.5
--- NOTE | 2019-03-13 09:12 | PN ---
Post Progress Note Type of Delivery: Repeat C/S Vital Signs: Vital Signs Temperature 98.5 F 03/13/19 08:42 Pulse Rate 71 03/13/19 08:42 Respiratory Rate 18 03/13/19 08:42 Blood Pressure 118/73 03/13/19 08:42 O2 Sat by Pulse Oximetry (%) 100 03/10/19 10:30 Breast Exam: Yes: Soft Incision: Yes: [place] intact Abdomen/GI: Yes: Abdomen soft Lochia: Yes: Rubra Lochia, amount: Small Extremities: Yes: Calves non-tender Perineum: Yes: Intact - Labs Labs: CBC WBC 5.7 K/mm3 (4.0-10.0) 03/13/19 06:15 RBC 3.73 M/mm3 (3.60-5.2) 03/13/19 06:15 Hgb 9.3 GM/dL (10.7-15.3) L 03/13/19 06:15 Hct 28.4 % (32.4-45.2) L 03/13/19 06:15 MCV 76.1 fl (80-96) L 03/13/19 06:15 MCH 24.9 pg (25.7-33.7) L 03/13/19 06:15 MCHC 32.7 g/dl (32.0-36.0) 03/13/19 06:15 RDW 16.1 % (11.6-15.6) H 03/13/19 06:15 Plt Count 273 K/MM3 (134-434) 03/13/19 06:15 MPV 8.2 fl (7.5-11.1) 03/13/19 06:15 Absolute Neuts (auto) 3.5 K/mm3 (1.5-8.0) 03/13/19 06:15 Neutrophils % 61.6 % (42.8-82.8) D 03/13/19 06:15 Lymphocytes % 27.1 % (8-40) D 03/13/19 06:15 Monocytes % 8.4 % (3.8-10.2) 03/13/19 06:15 Eosinophils % 2.7 % (0-4.5) D 03/13/19 06:15 Basophils % 0.2 % (0-2.0) 03/13/19 06:15 Nucleated RBC % 0 % (0-0) 03/13/19 06:15 Assessment/Plan dc home today
[2019-03-13] MEDS: PRENATAL VITAMINS W/ FOLIC ACID TABLET (FP) PO SCH (09:34)
[2019-03-13] MEDS: FERROUS SO4 325 MG TABLET (FP) PO SCH (09:34)
== END 2019-03-13 17:20 | disposition home or self-care (01) | DRG 540 ==
LOC: JDEL 02:00 → JLDR 07:30 → J3W 10:50
PROVIDERS: ADMIT Obstetrics & Gynecology; ATTEND Obstetrics & Gynecology
PROC: 10D00Z1 Extraction of Products of Conception, Low, Open Approach (ICD-10-PCS; principal; 2019-03-10)
DX: O34.211 Maternal care for low transverse scar from previous cesarean delivery (principal); O76 Abnormality in fetal heart rate and rhythm complicating labor and delivery; Z3A.38 38 weeks gestation of pregnancy; Z37.0 Single live birth
CPT/HCPCS: 36415; 59025; 76819-TC; 80048; 85025; 85610; 85730; 86593; 86850; 86900; 86901; 88302-TC; 88307-TC